=== PATIENT | female | born 1960 | race Caucasian/White ===

== ENCOUNTER 2021-02-01 12:39 | Outpatient (CLI) | payer BC, SELFPAY ==
--- NOTE | 2021-02-01 12:45 | USCV_ITS ---
Jacob Linnea Age: 60 Gender: F : 1960 Exam Date: 02/01/2021 13:07 Ordering Phys: Indu Merino MD ([email or web address]) Technologist: Bella Appiah [place] [facility] [place] [facility] [place]: RCEA RECHECK Risk Factors: Unknown Previous Vascular Surgery: RCEA Right Brachial BP: / Left Brachial BP: / Right Left Velocity (cm/s) Spectral Plaque Velocity (cm/s) Spectral Plaque Syst/Diast Broadening Syst/Diast Broadening 95.90/ 33.10 Prox CCA 76.90 / 29.90 79.40/ 34.20 Mid CCA 72.60 / 29.90 116.90/30.90 Hetro Distal CCA 65.80 / 29.90 Hetro 77.20/ 25.40 Hetro Prox ICA 320.00/ 99.40 Hetro 70.20/ 28.80 Mid ICA 257.90/ 87.00 80.30/ 34.30 Distal ICA 190.30/ 79.30 106.90 ECA 160.10 Hetro 1.01 ICA/CCA 4.41 Antegrade Vertebral Antegrade 43.50/ 15.70 cm/s 62.10/ 23.80 cm/s Tri Subclavian Bi 64.70 93.80 FINDINGS Comparison:. 08/07/17. Post right CEA. Resolved high grade carotid stenosis since the prior exam. Mild plaque persists. High grade left ICA stenosis, significant elevation of systolic and diastolic velocities. Irregular plaque at the bifurcation. Bilateral antegrade vertebral arteries. CONCLUSIONS Left ICA stenosis 70-99%. Mild progression since the prior exam. Right CEA, no residual stenosis. Dr. Karol Ramirez DO (Electronically Signed) Final Date: 01 February 2021 13:41 S
== END 2021-02-01 12:40 | disposition home or self-care (01) ==
LOC: RAD 12:42
PROVIDERS: PCP Nurse Practitioner Family; Visit Provider Internal Medicine Cardiovascular Disease
DX: I65.22 Occlusion and stenosis of left carotid artery (principal)
CPT/HCPCS: 93880

== ENCOUNTER 2021-03-14 13:01 | Outpatient (CLI) | payer BC, SELFPAY ==
--- NOTE | 2021-03-14 13:00 | CT_ITS ---
WS: [id number] CTA HEAD AND NECK TECHNIQUE: Contrast enhanced CTA of the head and neck with coronal and sagittal reformatted images an d maximum intensity projection (MIP) images. NASCET criteria utilized. CLINICAL INFORMATION: I65.23 Occlusion and stenosis of bilateral carotid COMPARISON: CTA 2 and ultrasound 02/01 2021 DLP: 1852.[address] scans at [facility] use at least one of these dose optimization techniques: automated e xposure control; mA and/or kV adjustment per patient size (includes targeted exams where dose is matc hed to clinical indication); or iterative reconstruction. FINDINGS: No evidence of intracranial hemorrhage or mass effect. Chronic lacunar infarct right caudat e. Mild small vessel changes. Moderate parenchymal volume loss worse in the frontal lobes. Intracrani al vascular calcification. Mastoid air cells are well aerated. Mild mucosal thickening in the ethmoid air cells. Soft tissue nodule overlying the right frontal calvarium likely sebaceous cyst. RIGHT: Postoperative changes right carotid endarterectomy. Right common carotid artery is patent. No recurre nt right ICA stenosis. Right ICA is patent to the skull base. LEFT: Left common carotid artery is patent. Dense calcified atheromatous plaque left carotid bulb ext ending into the ICA with stenosis 1 cm distal to the bifurcation measuring approximately 60%. Irregul ar ulcerated atheromatous plaque left carotid bulb extending into the ICA. Left ICA is patent to the skull base. INTRACRANIAL CTA Moderate calcified stenosis left vertebral artery origin which remains patent. Right vertebral artery is patent. Basilar artery is patent. Normal vascularity to the FEEDER TENDER territory bilaterally. Both ICAs are patent at the skull base. Dense cavernous carotid calcification. Normal vascularity to the STEW and MCA territories bilaterally. No evidence of flow-limiting stenosis or aneurysm. Patent an terior communicating artery. Small right A1 segment. Mastoid air cells are well aerated. Polypoid mucosal thickening left maxillary sinus. A few thyroid n odules largest on the right measuring 11 mm. A few lucent lesions in the calvarium stable nonspecific but may represent venous lakes unchanged since 2018. Emphysematous changes in the lung apices. CT/CT angio headneck* [id number] IMPRESSION: 1. Prior postoperative changes right carotid endarterectomy. No recurrent sten osis. 2. Irregular heterogeneous atheromatous plaque left carotid bulb extending int o the ICA with stenosis measuring approximately 60% 1 cm distal to the bifurcat ion. This is similar in appearance and appears slightly progressed compared to 2018 3. Dense calcification with moderate stenosis left vertebral artery origin. Jose th vertebral arteries are patent. 4. Normal intracranial CTA. No evidence of flow-limiting stenosis or aneurysm. 5. Patent anterior communicating artery. Small right A1 segment.
[2021-03-14 13:34] LABS: Blood Urea Nitrogen 23 mg/dL (8-23); Glomerular Filtration Rate 56.6 mL/min (90-130)
[2021-03-14] MEDS: iohexol 350 mg/mL 100 mL Btl IV (13:40)
== END 2021-03-14 13:02 | disposition home or self-care (01) ==
PROVIDERS: PCP Nurse Practitioner Family; Visit Provider Internal Medicine Cardiovascular Disease
DX: Z01.812 Encounter for preprocedural laboratory examination (principal); I65.23 Occlusion and stenosis of bilateral carotid arteries; Z98.890 Other specified postprocedural states
CPT/HCPCS: 70496; 70498; 82565; 84520; Q9967

== ENCOUNTER 2022-03-26 11:52 | Emergency (ER) | payer OTHER, SELFPAY ==
[2022-03-26] VITALS (12 sets, daily range): BP systolic 139–213; BP diastolic 75–104; PULSE 60–79; RESP 16–18; TEMP 36.2; O2SAT 95–100; BMI 26.7
[2022-03-26 12:50] LABS: Add Urine Microscopic? NO; Charge for UA Resulting for Rev
[2022-03-26 12:52] LABS: Basophils % 0.5 %; Eosinophils # 0.1 10^3/uL (0.0-0.8); Eosinophils % 1.6 %; Hematocrit 36.6 % (37.0-47.0); Hemoglobin 12.3 g/dL (11.5-15.3); Lymphocytes # 1.9 10^3/uL (0.8-4.8); Lymphocytes % 21.5 %; Mean Corpuscular HGB Conc 33.6 g/dL (30.0-36.0); Mean Corpuscular Hemoglobin 30.8 pg (28.0-34.0); Mean Corpuscular Volume 91.7 fl (81-99); Mean Platelet Volume 11.2 fL (7.4-10.4); Monocytes # 0.7 10^3/uL (0.2-0.9); Neutrophils # 6.01 10^3/uL (1.8-7.7); Neutrophils % 68.2 %; Nucleated Red Blood Cells % 0 %; Platelet Count 217 10^3/cmm (130-400); Red Blood Count 3.99 10^6/uL (4.1-5.3); White Blood Count 8.8 10^3/uL (4.0-10.0)
[2022-03-26 12:58] LABS: Bilirubin Urine Neg (Negative); Blood Urine Neg (Negative); Glucose Urine UA Norm (Normal); Ketones Urine Negative (Negative); Leukocyte Esterase Urine Negative (Negative); Nitrate Urine Negative (Negative); Protein Urine Neg (Negative); Specific Gravity, Urine 1.005 (1.005-1.030); Urine Appearance Clear (CLEAR); Urine Color Straw (Yellow); Urobilinogen Urine Norm (Negative); pH Urine 7 (5-7)
--- NOTE | 2022-03-26 13:01 | ECG_ITS ---
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 Measurements Intervals [place] Rate: 56 P: 64 TX: 176 QRS: 69 QRSD: 84 T: 73 QT: 407 QTc: 395 Interpretive Statements SINUS BRADYCARDIA Compared to ECG 02/23/2019 02:11:54 Sinus rhythm no longer present Electronically Signed On 03-27-2022 6:04:29 CDT by Indu Merino M.D. [id number]
--- NOTE | 2022-03-26 13:02 | ED_ITS ---
HPI - General Adult General: Chief complaint: General Medical Stated complaint: High BP Time Seen by Provider: 03/26/22 12:23 History of Present Illness: CC: Elevated BP HPI: [61]yo patient w/ x hx of HTN on multiple meidcations presenting to the ED with complaints that his BP is not well controlled. Patient is on 4 agents for BP control including clonidine, losartan, nifedipine and nebivolol. Baseline daily BP noed at >200 systolic today and has been uncontrolled despite taking m edication for the last 5 days. However, the patient noticed today BP is uncontrolled. Denies chest pain, SOB, palpitation, N/V/D, pain radiating to the shoulder, headache, vision changes, LOC, or focal neurological deficits. Patient also denies light-headedness, syncope, vertigo abdominal pain, back pain. Tolerating PO meds without issues. Onset: 5 day Duration: ongoing Location: home Severity: mild Associated symptoms: Deny chest pain, dyspnea, nausea, rash, palpitations or vomiting Review of Systems Const: Denies: fever(s) or chills Eyes: Denies: change in vision ENMT: Denies: mouth pain Card: Denies: chest pain or palpitations Resp: Denies: dyspnea or non-productive cough GI: Denies: abdominal pain, nausea, vomiting or diarrhea : Denies: dysuria Musc: Denies: extremity pain Skin/Breast: Denies: rash or new lesions Neuro: Denies: weakness in extremities Psych: Reports: other (Normal mood) Mayito/Lymph: Denies: easy bruising PFS ED PFSH: Medical History Carotid artery stenosis LEFT HTN (hypertension) Hyperlipidemia Stroke Family History Denies family history of Diabetes CAD (coronary artery disease) Stroke Social History Smoking and tobacco status: current every day smoker Alcohol intake: never Physical Exam Const: COMMON NORMALS: alert HENMT: COMMON NORMALS: atraumatic HEAD & SCALP: atraumatic MOUTH: moist mucous membranes not abnormal Eye: COMMON NORMALS: EOMs intact bilaterally and conjunctivae normal CONJUNCTIVA: Yes conjunctivae normal Neck/C-Spine: COMMON NORMALS: full ROM and supple Resp: COMMON NORMALS: normal respiratory effort and clear to auscultation bilaterally AUSCULTATION: clear to auscultation bilaterally Cardio: COMMON NORMALS: regular rate RATE: regular rate OTHER: 2+ radial pulses b/l GI: COMMON NORMALS: Soft to palpation and non-tender PALPATION: Yes Soft to palpation OTHER: No focal TTP. NO guarding rebound, guarding, rigidity. No CVA tenderness to percussion. Neg Pedro/Neg McBurney's point tenderness, no suprabupic tenderness to palpation. Extremity: COMMON NORMALS: full ROM Neuro: SENSORIUM/ORIENTATION: Yes alert MOTOR EXAM: No Abnormal motor strength present and Other motor observations present (no focal motor deficits) OTHER: Mental status? Awake, alert, and oriented to self, year, month, location, and situation.? Following simple axial and appendicular commands.? Has appropriate fund of knowledge, comprehension, and insight.? Able to recall and understands pertinent aspects of medical history and current treatment status.? ? Language? Speech is fluent without word-finding difficulties.? Intact naming, expression, bilingual medical receptionist, and repetition.? ? Cranial nerves? 2,3,4,6: PERRL, EOMI with no nystagmus. 5: Intact sensation to light touch, symmetric? 7: Smile symmetrical, no facial droop.? 8: Hearing grossly intact.? 9,10: Normal palate movement.? 11: Normal strength in trapezius bilaterally 12: Tongue protrudes midline.? ? Motor examination? Normal bulk & tone. Strength as follows (R/L): Delts (5/5), Biceps (5/5), Triceps (5/5), Wrist ext (5/5), hip flexors (5/5), plantarflexors (5/5), dorsiflexors (5/5). Sensation? Light Touch: Grossly intact and equal in upper and lower extremities bilater ally? Romberg: Negative.? Distal joint position sense intact ? Coordination? Zdcpyr-yt-[id number]-finger movements intact without dysmetria or past-pointing.? Rapid fingertaps: preserved amplitude without decriment.? No tremor, myoclonus or truncal ataxia.? ? Gait/stance? Steady, normal narrow base gait with appropriate arm swing and turning.? Tandem gait without hesitation or loss of balance. Psych: COMMON NORMALS: speech normal SPEECH: Yes normal speech MOOD & AFFECT: Yes euthymic mood Course Vital Signs: Vital signs: Vital Signs Temperature 97.1 F L 03/26/22 11:53 Pulse Rate 76 03/26/22 17:45 Respiratory Rate 17 03/26/22 17:45 Blood Pressure 206/94 03/26/22 17:45 Pulse Oximetry 99 03/26/22 17:45 Oxygen Delivery Me thod 03/26/22 17:45 MDM - General Adult Medical Decision Making [61]yo patient w/ hx of HTN on multiple medications presenting to the ED with high BP readings x 5 day without other medical complaints. Rest of exam including full neuro exam intact. Given presentation, history and exam, I do not suspect aortic dissection, hypertensive encephalopathy, intracranial hemorrhage, ACS, TIA/CVA, flash pulmonary edema. Intervention: hydralazine 20mg IV, amlodipine 5mg [2:30pm] On reassessment, BP improved on reassessment. Troponin within normal limit. Creatinine within normal limit. Patient is neurologically intact. Patient continues to be symptom-free at this time. Do not suspect an emergent cause. Shortly prior to discharge, patient reports headache and generalized paresthesia over the body. CT head is negative for any acute findings. CT abdomen pelvis showed renal vascular disease. No signs of renal mass. Patient's has had intermittent fluctuating blood pressure. Given the fact the patient is on multiple agent with findings of renal vascular disease, I believe managing patient's blood pressure is very challenging. Patient has no signs of endorgan damage currently. However, I have given patient strict instruction to follow-up with primary care provider as well as cardiology for further management of symptoms. She is given strict return precaution any signs of endorgan damage including chest pain or other neurological symptoms. Rx: Amlodipine 5mg BID Based on history, exam, vital signs, and work up (as indicated) I do not suspect an ongoing emergent medical condition, and I believe the patient is safe for discharge and outpatient follow-up. The plan of care was discussed with the patient and all questions were answered. The patient agrees with the plan of care and is discharged in stable condition with verbal and written instructions, and verbalized understanding and ability to comply. I discussed the diagnosis and treatment plan at length with the patient. The patient understands signs and symptoms (including those which are new or worsening) which should prompt return to the ED. The patient is to seek prompt outpatient follow-up as noted verbally and/or in the discharge instructions. At the time of discharge the patient is well-appearing, well-hydrated, non-toxic, and assures appropriate follow-up as an outpatient. Lab Data : 03/26/22 12:40 03/26/22 12:[address] 03/26/22 14:23 IMPRESSION: No acute intracranial finding. Abdomen/Pelvis CT 03/26/22 15:07 IMPRESSION: 1. No adrenal mass is identified. 2. Abdominal aortic aneurysm slightly larger than on 03/05/2018. 3. Increasing atrophy of the left kidney. Combined with a history of hypertension the suggests possibility of renal vascular disease. Laboratory Results WBC 8.8 10^3/uL (4.0-10.0) 03/26/22 12:40 RBC 3.99 10^6/uL (4.1-5.3) L 03/26/22 12:40 Hgb 12.3 g/dL (11.5-15.3) 03/26/22 12:40 Hct 36.6 % (37.0-47.0) L 03/26/22 12:40 MCV 91.7 fl (81-99) 03/26/22 12:40 MCH 30.8 pg (28.0-34.0) 03/26/22 12:40 MCHC 33.6 g/dL (30.0-36.0) 03/26/22 12:40 RDW 13.0 % (12.1-15.1) 03/26/22 12:40 Plt Count 217 10^3/cmm (130-400) 03/26/22 12:40 MPV 11.2 fL (7.4-10.4) H 03/26/22 12:40 Neut % (Auto) 68.2 % 03/26/22 12:40 Lymph % (Auto) 21.5 % 03/26/22 12:40 Glynn % (Auto) 8.0 % 03/26/22 12:40 Eos % (Auto) 1.6 % 03/26/22 12:40 Baso % (Auto) 0.5 % 03/26/22 12:40 Neut # (Auto) 6.01 10^3/uL (1.8-7.7) 03/26/22 12:40 Lymph # (Auto) 1.9 10^3/uL (0.8-4.8) 03/26/22 12:40 Glynn # (Auto) 0.7 10^3/uL (0.2-0.9) 03/26/22 12:40 Eos # (Auto) 0.1 10^3/uL (0.0-0.8) 03/26/22 12:40 Baso # (Auto) 0.0 10^3/uL (0.0-0.1) 03/26/22 12:40 Nucleated RBC % (auto) 0 % 03/26/22 12:40 Nucleated RBCs # 0.0 /100WBC 03/26/22 12:40 Sodium 127 mmol/L (136-145) L 03/26/22 12:40 Potassium 4.3 mmol/L (3.5-5.1) 03/26/22 12:40 Chloride 94 mmol/L (98-107) L 03/26/22 12:40 Carbon Dioxide 22 mmol/L (22-29) 03/26/22 12:40 Anion Gap 15.3 (5-19) 03/26/22 12:40 BUN 13 mg/dL (8-23) 03/26/22 12:40 Creatinine 0.8 mg/dL (0.5-0.9) 03/26/22 12:40 GFR Calculation 72.9 mL/min (90-130) L 03/26/22 12:40 Glucose 107 mg/dL (65-115) 03/26/22 12:40 Calculated Osmolality 265 mOsm/kg (285-295) L 03/26/22 12:40 Calcium 9.7 mg/dL (8.5-10.5) 03/26/22 12:40 Total Bilirubin 0.3 mg/dL (0.15-1.2) 03/26/22 12:40 AST 20 U/L (0-32) 03/26/22 12:40 ALT 11 U/L (0-33) 03/26/22 12:40 Alkaline Phosphatase 78 U/L (35-105) 03/26/22 12:40 Troponin T Baseline 6 ng/L (0-10) 03/26/22 12:40 Troponin T 120 Minute 7.20 ng/L (0-10) 03/26/22 15:35 Delta Troponin T 1.20 ABS# (0-10) 03/26/22 15:35 Total Protein 7.4 g/dL (6.6-8.7) 03/26/22 12:40 Albumin 4.3 g/dL (3.5-5.2) 03/26/22 12:40 Globulin 3.1 g/dL (1.3-4.6) 03/26/22 12:40 Lipase 66 U/L (13-60) H 03/26/22 12:40 Urine Color Straw (Yellow) 03/26/22 12:40 Urine Appearance Clear (CLEAR) 03/26/22 12:40 Urine pH 7 (5-7) 03/26/22 12:40 Ur Specific [place] 1.005 (1.005-1.030) 03/26/22 12:40 Urine Protein Neg (Negative) 03/26/22 12:40 Urine Glucose (UA) Norm (Normal) 03/26/22 12:40 Urine Ketones Negative (Negative) 03/26/22 12:40 Urine Blood Neg (Negative) 03/26/22 12:40 Urine Nitrate Negative (Negative) 03/26/22 12:40 Urine Bilirubin Neg (Negative) 03/26/22 12:40 Urine Urobilinogen Norm mg/dL (Negative) 03/26/22 12:40 Ur Leukocyte Esterase Negative (Negative) 03/26/22 12:40 Imaging Data Other Imaging: Radiologist's impression: [address] [address] [address] Scan Report Signed Patient: Linnea James Unit #: [id number] : 1960 Age/Sex: 61 / F ADM Date: 03/26/22 Loc: ER Room/Bed: Attending Dr: Ordering Provider/Ordering MD: Paige Mccallum MD Date of Service: 03/26/22 Procedure(s): CT abdomen pelvis wo con [id number] Accession Number(s): [id number] Report Number: [id number] PROCEDURE INFORMATION: Exam: CT Abdomen And Pelvis Without Contrast Exam date and time: 03/26/2022 3:14 PM Age: 61 years old Clinical indication: Abdominal pain; Generalized; Patient HX: Severe SCOTT, high blood pressure. PT denies abd complaints at this time. Reasoning for exam possible adrenal mass TECHNIQUE: Imaging protocol: Computed tomography of the abdomen and pelvis without contrast. Radiation optimization: All CT scans at this facility use at least one of these dose optimization techniques: automated exposure control; mA and/or kV adjustment per patient size (includes targeted exams where dose is matched to clinical indication); or iterative reconstruction. COMPARISON: CT abdomen pelvis w con* [id number] 03/05/2018 3:00 PM RADIATION DOSE METRICS: Total DLP (mGy-cm): 518.43 FINDINGS: Limitations: The absence of intravenous contrast lessens the sensitivity of this study for solid organ abnormalities. Liver: There is no focal abnormality within the liver. Gallbladder and bile ducts: The gallbladder is normal. Pancreas: The pancreas is normal. Spleen: The spleen is normal. Adrenal glands: The adrenal glands are normal. Kidneys and ureters: The right kidney is normal. Left kidney is moderately atrophic and significantly smaller than on 03/05/2018. Calcifications associated with each kidney are most likely vascular. No definite renal stones are identified and there is no ureteral calculus. Stomach and bowel: There is no evidence of colitis/diverticulitis. There is no evidence of intestinal obstruction. Appendix: A normal appendix is identified. Intraperitoneal space: There is no evidence of free intraperitoneal fluid. There is no evidence of free intraperitoneal fluid. Vasculature: There is a bilobed infrarenal abdominal aorta. The larger upper portion of the aneurysm measures approximately 3.4 cm which is not significantly changed and the lower portion 2.9 cm which is slightly larger than 2.3 cm on the previous study. Lymph nodes: There is no evidence of lymphadenopathy. Urinary bladder: Unremarkable as visualized. Reproductive: Unremarkable as visualized. Bones/joints: Unremarkable. No acute fracture. Soft tissues: Unremarkable. CT/CT abdomen pelvis wo con [id number] IMPRESSION: 1. No adrenal mass is identified. 2. Abdominal aortic aneurysm slightly larger than on 03/05/2018. 3. Increasing atrophy of the left kidney. Combined with a history of hypertension the suggests possibility of renal vascular disease. ? Dictated By: Grabiel Cunningham Signed By: Grabiel Cunningham Signed Date/Time: 03/26/22 7067 DD/ 15[address] [facility] [address] [place] [address] CT Scan Report Signed Patient: Linnea James Unit #: [id number] : 1960 Age/Sex: 61 / F ADM Date: 03/26/22 Loc: ER Room/Bed: Attending Dr: Ordering Provider/Ordering MD: Paige Mccallum MD Date of Service: 03/26/22 Procedure(s): CT head wo con* [id number] Accession Number(s): [id number] Report Number: [id number] PROCEDURE INFORMATION: Exam: CT Head Without Contrast Exam date and time: 03/26/2022 3:11 PM Age: 61 years old Clinical indication: Pain; Headache not specified; Patient HX: Severe SCOTT, high blood pressure. PT denies abd complaints at this time. Reasoning for exam possible adrenal mass TECHNIQUE: Imaging protocol: Computed tomography of the head without contrast. Radiation optimization: All CT scans at this facility use at least one of these dose optimization techniques: automated exposure control; mA and/or kV adjustment per patient size (includes targeted exams where dose is matched to clinical indication); or iterative reconstruction. COMPARISON: CT angio headneck* [id number] 03/14/2021 1:31 PM RADIATION DOSE METRICS: Total DLP (mGy-cm): 1063.88 FINDINGS: Brain: There is mild cortical atrophy. Low-density changes in the white matter are consistent with nonspecific small vessel chronic ischemic change. There is no intracranial mass, hemorrhage or edema. There may be small old lacunar infarcts in the basal ganglia not significantly changed. Cerebral ventricles: No ventriculomegaly. Paranasal sinuses: Visualized sinuses are unremarkable. No fluid levels. Mastoid air cells: Visualized mastoid air cells are well aerated. Bones/joints: Unremarkable. No acute fracture. Soft tissues: Unremarkable. CT/CT head wo con* [id number] IMPRESSION: No acute intracranial finding. ? Dictated By: Grabiel Cunningham Signed By: Grabiel Cunningham Signed Date/Time: 03/26/22 1733 DD/ 1511 Discharge Plan Discharge Patient Disposition: Home Clinical Impression: Hypertension Condition: Stable Prescriptions: New amlodipine 5 mg tablet 5 mg PO BID 10 Days Qty: 20 0RF No Action multivitamin Tablet 1 tab PO DAILY clopidogrel 75 mg tablet 75 mg PO DAILY Qty: 90 2RF losartan 100 mg tablet See Rx Instructions .ROUTE .COMPLEX Qty: 30 11RF Dose Instruction: TAKE 1 TABLET BY MOUTH EVERY DAY Rx Instructions: TAKE 1 TABLET BY MOUTH EVERY DAY fenofibrate nanocrystallized [Tricor] 145 mg tablet 145 mg PO DAILY Qty: 90 1RF Bystolic 10 mg tablet 10 mg PO DAILY Qty: 90 3RF rosuvastatin [Crestor] 20 mg tablet 20 mg PO DAILY Qty: 90 3RF clonidine HCl 0.2 mg tablet 0.2 mg PO TID Qty: 90 6RF nifedipine 90 mg tablet extended release 90 mg PO DAILY Qty: 90 2RF Discharge Orders: Discharge ED (Routine); Ordered 03/26/22 Ordered By: Paige Mccallum Discharge Diet: Advance as tolerated Discharge Activity: Increase activity as tolerated Activity Restrictions/Additional Instructions: You need to follow-up with your primary care provider for further adjustment of your blood pressure. Your blood pressure puts you at risk for developing s trokes and heart attack. Therefore it is very important for you to follow-up with this number to see if the numbers improve gradually. Because blood pressure adjustment is a gradual process, were not able to change it in 1 visit. Therefore please log your blood pressure and follow-up with your primary care provider in the next 72 hours for further adjustment of your blood pressures. Please ensure adequate salt intake daily. Coding Level of Care Code ED Casting Machine Set Up Operator for [place] Fwd Exam Comprehensive
[2022-03-26] MEDS: hyDRALAzine 20 mg/mL INJ 1 mL IVP (13:07)
[2022-03-26 13:08] LABS: Alanine Aminotransferase 11 U/L (0-33); Albumin Level 4.3 g/dL (3.5-5.2); Alkaline Phosphatase 78 U/L (35-105); Anion Gap 15.3 (5-19); Aspartate Amino Transferase 20 U/L (0-32); Blood Urea Nitrogen 13 mg/dL (8-23); Calcium 9.7 mg/dL (8.5-10.5); Carbon Dioxide 22 mmol/L (22-29); Chloride 94 mmol/L (98-107); Creatinine Clr Calc Pharmacy 71.2583; Globulin 3.1 g/dL (1.3-4.6); Glomerular Filtration Rate 72.9 mL/min (90-130); Glucose 107 mg/dL (65-115); Lipase 66 U/L (13-60); Osmolality Calculated 265 mOsm/kg (285-295); Potassium 4.3 mmol/L (3.5-5.1); Sodium 127 mmol/L (136-145); Total Bilirubin 0.3 mg/dL (0.15-1.2); Total Protein 7.4 g/dL (6.6-8.7)
[2022-03-26 13:30] LABS: Troponin(5th) Baseline 6 ng/L (0-10)
--- NOTE | 2022-03-26 14:23 | CTR_ITS ---
PROCEDURE INFORMATION: Exam: CT Head Without Contrast Exam date and time: 03/26/2022 3:11 PM Age: 61 years old Clinical indication: Pain; Headache not specified; Patient HX: Severe SCOTT, high blood pressure. PT denies abd complaints at this time. Reasoning for exam possible adrenal mass TECHNIQUE: Imaging protocol: Computed tomography of the head without contrast. Radiation optimization: All CT scans at this facility use at least one of these dose optimization techniques: automated exposure control; mA and/or kV adjustment per patient size (includes targeted exams where dose is matched to clinical indication); or iterative reconstruction. COMPARISON: CT angio headneck* [id number] 03/14/2021 1:31 PM RADIATION DOSE METRICS: Total DLP (mGy-cm): 1063.88 FINDINGS: Brain: There is mild cortical atrophy. Low-density changes in the white matter are consistent with nonspecific small vessel chronic ischemic change. There is no intracranial mass, hemorrhage or edema. There may be small old lacunar infarcts in the basal ganglia not significantly changed. Cerebral ventricles: No ventriculomegaly. Paranasal sinuses: Visualized sinuses are unremarkable. No fluid levels. Mastoid air cells: Visualized mastoid air cells are well aerated. Bones/joints: Unremarkable. No acute fracture. Soft tissues: Unremarkable. CT/CT head wo con* [id number] IMPRESSION: No acute intracranial finding.
[2022-03-26] MEDS: midazolam 1 mg/mL INJ 2 mL 2 MG IV (14:24)
--- NOTE | 2022-03-26 14:24 | PC.NURSE ---
Pt is crying and anxious very concerned about her BP. C/o of headache and not feeling right, unable to describe exactly what shes feeling. ERP notified and at bedside. New verbal orders for meds.
[2022-03-26] MEDS: diphenhydrAMINE 50 mg/mL SDV 1mL IVP (14:27)
[2022-03-26] MEDS: famotidine 20 mg/2 mL INJ IVP (14:28)
--- NOTE | 2022-03-26 15:01 | ECG_ITS ---
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 Measurements Intervals [place] Rate: 63 P: 41 IN: 179 QRS: 23 QRSD: 83 T: 44 QT: 393 QTc: 405 Interpretive Statements SINUS RHYTHM POSSIBLE LEFT ATRIAL ENLARGEMENT [-0.1mV P-WAVE IN V1/V2] POSSIBLE ANTERIOR MYOCARDIAL INFARCTION , OF INDETERMINATE AGE [30 ms Q WAVE IN V3/V4, OR R < 0.2 mV IN V4] Compared to ECG 03/26/2022 13:14:01 Myocardial infarct finding now present Sinus bradycardia no longer present Electronically Signed On 03-27-2022 6:09:44 CDT by Indu Merino M.D. [id number]
--- NOTE | 2022-03-26 15:07 | CTR_ITS ---
PROCEDURE INFORMATION: Exam: CT Abdomen And Pelvis Without Contrast Exam date and time: 03/26/2022 3:14 PM Age: 61 years old Clinical indication: Abdominal pain; Generalized; Patient HX: Severe SCOTT, high blood pressure. PT denies abd complaints at this time. Reasoning for exam possible adrenal mass TECHNIQUE: Imaging protocol: Computed tomography of the abdomen and pelvis without contrast. Radiation optimization: All CT scans at this facility use at least one of these dose optimization techniques: automated exposure control; mA and/or kV adjustment per patient size (includes targeted exams where dose is matched to clinical indication); or iterative reconstruction. COMPARISON: CT abdomen pelvis w con* [id number] 03/05/2018 3:00 PM RADIATION DOSE METRICS: Total DLP (mGy-cm): 518.43 FINDINGS: Limitations: The absence of intravenous contrast lessens the sensitivity of this study for solid organ abnormalities. Liver: There is no focal abnormality within the liver. Gallbladder and bile ducts: The gallbladder is normal. Pancreas: The pancreas is normal. Spleen: The spleen is normal. Adrenal glands: The adrenal glands are normal. Kidneys and ureters: The right kidney is normal. Left kidney is moderately atrophic and significantly smaller than on 03/05/2018. Calcifications associated with each kidney are most likely vascular. No definite renal stones are identified and there is no ureteral calculus. Stomach and bowel: There is no evidence of colitis/diverticulitis. There is no evidence of intestinal obstruction. Appendix: A normal appendix is identified. Intraperitoneal space: There is no evidence of free intraperitoneal fluid. There is no evidence of free intraperitoneal fluid. Vasculature: There is a bilobed infrarenal abdominal aorta. The larger upper portion of the aneurysm measures approximately 3.4 cm which is not significantly changed and the lower portion 2.9 cm which is slightly larger than 2.3 cm on the previous study. Lymph nodes: There is no evidence of lymphadenopathy. Urinary bladder: Unremarkable as visualized. Reproductive: Unremarkable as visualized. Bones/joints: Unremarkable. No acute fracture. Soft tissues: Unremarkable. CT/CT abdomen pelvis wo con [id number] IMPRESSION: 1. No adrenal mass is identified. 2. Abdominal aortic aneurysm slightly larger than on 03/05/2018. 3. Increasing atrophy of the left kidney. Combined with a history of hypertension the suggests possibility of renal vascular disease.
[2022-03-26] MEDS: LORazepam 1 mg Tablet PO (17:50)
[2022-03-26] MEDS: amlodipine 5 mg Tablet PO (18:43)
== END 2022-03-26 19:07 | disposition home or self-care (01) ==
PROVIDERS: Family Medicine; Emergency Provider Emergency Medicine
DX: I10 Essential (primary) hypertension (principal); Z79.02 Long term (current) use of antithrombotics/antiplatelets; E78.5 Hyperlipidemia, unspecified; Z86.73 Personal history of transient ischemic attack (TIA), and cerebral infarction without residual deficits; F17.210 Nicotine dependence, cigarettes, uncomplicated
CPT/HCPCS: 70450; 74176; 80053; 81003; 83690; 84484; 85025; 93005; 96374; 96375; 99285; J0360; J1200; J2250; J3490

== ENCOUNTER → 2023-05-12 11:48 | Outpatient (BNVA) | payer OTHER, SELFPAY | PROVIDERS: Visit Provider Nurse Practitioner | DX: E78.5 Hyperlipidemia, unspecified (principal); I10 Essential (primary) hypertension; F41.8 Other specified anxiety disorders; Z76.89 Persons encountering health services in other specified circumstances; Z53.20 Procedure and treatment not carried out because of patient's decision for unspecified reasons | CPT/HCPCS: 80053; 80061; 84443; 85025 ==

== ENCOUNTER 2023-09-20 18:33 | Emergency (ER) | payer OTHER, SELFPAY ==
[2023-09-20] VITALS (8 sets, daily range): BP systolic 135–189; BP diastolic 72–95; PULSE 68–84; RESP 16–20; TEMP 36.6; O2SAT 91–100; BMI 27.4
--- NOTE | 2023-09-20 18:41 | ECG_ITS ---
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 Measurements Intervals [place] Rate: 78 P: 42 [place]: 173 QRS: 22 QRSD: 84 T: 51 QT: 345 QTc: 394 Interpretive Statements SINUS RHYTHM POSSIBLE LEFT ATRIAL ENLARGEMENT [-0.1mV P-WAVE IN V1/V2] POSSIBLE ANTERIOR MYOCARDIAL INFARCTION , OF INDETERMINATE AGE [30 ms Q WAVE IN V3/V4, OR R < 0.2 mV IN V4] Compared to ECG 03/26/2022 15:02:27 No significant changes Electronically Signed On 09-21-2023 23:56:28 CDT by Jaya Harman M.D. [email or web address] [id number]
--- NOTE | 2023-09-20 20:27 | XRR_ITS ---
PROCEDURE INFORMATION: Exam: XR Chest Exam date and time: 09/20/2023 8:32 PM Age: 62 years old Clinical indication: Shortness of breath; Patient HX: SOB; Weakness; Easily exauhsted; Copd TECHNIQUE: Imaging protocol: Radiologic exam of the chest. Views: 1 view. COMPARISON: CR XR chest 1V [id number] 02/22/2019 3:55 PM FINDINGS: Lungs: Mildly hyperinflated lungs. No consolidation. Pleural spaces: Unremarkable. No pleural effusion. No pneumothorax. Heart/Mediastinum: Magnified by portable technique, likely in the upper limits of normal in size. Bones/joints: Unremarkable. XR/XR chest 1V portable [id number] IMPRESSION: Mild hyperinflation suggestive of COPD/airways disease without focal consolidation.
--- NOTE | 2023-09-20 20:42 | ECG_ITS ---
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 Measurements Intervals [place] Rate: 68 P: 33 [place]: 179 QRS: 13 QRSD: 84 T: 40 QT: 364 QTc: 390 Interpretive Statements SINUS RHYTHM POSSIBLE LEFT ATRIAL ENLARGEMENT [-0.1mV P-WAVE IN V1/V2] POSSIBLE LEFT VENTRICULAR HYPERTROPHY [VOLTAGE CRITERIA PLUS LAE OR QRS WIDENING] POSSIBLE ANTERIOR MYOCARDIAL INFARCTION , OF INDETERMINATE AGE [30 ms Q WAVE IN V3/V4, OR R < 0.2 mV IN V4] Compared to ECG 09/20/2023 18:41:52 No significant changes Electronically Signed On 09-21-2023 23:56:21 CDT by Jaya Harman M.D. [id number]
[2023-09-20 20:48] LABS: Basophils # 0.1 10^3/uL (0.0-0.1); Basophils % 0.7 %; Eosinophils # 0.2 10^3/uL (0.0-0.8); Eosinophils % 2.3 %; Hematocrit 35.3 % (36-47); Lymphocytes # 2.7 10^3/uL (0.8-4.8); Lymphocytes % 28.2 %; Mean Corpuscular HGB Conc 33.4 g/dL (30-55); Mean Corpuscular Hemoglobin 29.9 pg (27-33); Mean Corpuscular Volume 89.6 fl (85-98); Mean Platelet Volume 10.7 fL (7.4-10.4); Monocytes # 0.8 10^3/uL (0.2-0.9); Monocytes % 8.8 %; Neutrophils # 5.73 10^3/uL (1.8-7.7); Neutrophils % 59.7 %; Nucleated Red Blood Cells % 0 %; Platelet Count 279 10^3/cmm (157-399); Red Blood Count 3.94 10^6/uL (3.85-5.65); Red Cell Distribution Width 12.1 % (12.1-15.1); White Blood Count 9.59 10^3/uL (3.29-11.43)
[2023-09-20 21:06] LABS: Troponin(5th) Baseline < 6 ng/L (0-10)
--- NOTE | 2023-09-20 21:08 | ED_ITS ---
HPI - SOB/Dyspnea 2 General: Chief Complaint: Shortness of Breath/Dyspnea Stated Complaint: SOB Time Seen by Provider: 09/20/23 20:23 History of Present Illness: HPI Narrative: 62-year-old female with no prior history of coronary disease. She does have a history of hypertension and carotid artery disease. She presents short of breath. She says she has been short of breath for the past couple of months on and off. It seems to be worsening. Last night, she was more short of breath than usual, with arm heaviness, shortness of breath while walking across her house. She was experiencing reflux symptoms as well which she has not really had before. Her daughter convinced her to come to the ER today to get checked out Pertinent past history: other Associated symptoms: Reports chest pain ( Reflux ) and nausea; Deny abdominal pain, fever(s) or vomiting Review of Systems 2 Const: Denies: fever(s) or chills ENMT: Denies: throat pain Card: Reports: chest pain ( Reflux ) Resp: Reports: dyspnea and non-productive cough GI: Reports: nausea; Denies: abdominal pain or vomiting PFSH ED 2 PFSH: Medical History Stroke HTN (hypertension) Hyperlipidemia Carotid artery stenosis left- 60% ICA stenosis in 2020. right s/p endartarectomy Family History Denies family history of Diabetes CAD (coronary artery disease) Stroke Social History Smoking and tobacco/nicotine status: current every day tobacco/nicotine user Alcohol intake: never Substance/Drug Use: never Female Reproductive History: Spontaneous abortions: No Date of menopause: 0 06/30/04 Physical Exam 2 Const: COMMON NORMALS: no acute distress GENERAL APPEARANCE: cooperative; not ill appearing and not frail appearing HENMT: COMMON NORMALS: normocephalic, atraumatic and Normal external nose present HEAD & SCALP: normocephalic and atraumatic FACE & SINUS: normal facial exam and face symmetric NOSE: Normal external nose present Eye: COMMON NORMALS: Equal, round and reactive pupils present and EOMs intact bilaterally PUPIL: Yes Equal, round and reactive pupils present Neck/C-Spine: GENERAL: Yes trachea midline Chest: CHEST: Yes Symmetrical chest wall rise Resp: COMMON NORMALS: normal respiratory effort, No retractions and No use of accessory muscles AUSCULTATION: wheezes (Bilateral) Cardio: COMMON NORMALS: regular rate and regular rhythm RATE: regular rate RHYTHM: regular rhythm GI: COMMON NORMALS: Normal to inspection, nondistended, normoactive bowel sounds present Extremity: COMMON NORMALS: no pedal edema Neuro: [place] COMA SCALE: document GCS findings [place] coma scale eye opening: Spontaneous [place] coma scale verbal response: Orientated [place] coma scale motor response: Obey commands [place] coma scale total score: 15 S ENSORY EXAM: Yes extremities (intact) Psych: COMMON NORMALS: speech normal SPEECH: Yes normal speech Skin: COMMON NORMALS: no rashes or lesions noted GENERAL SKIN EXAM: no rashes or lesions noted Course 2 Vital Signs: Vital signs: Vital Signs Temperature 97.9 F 09/20/23 22:45 Pulse Rate 76 09/20/23 22:45 Respiratory Rate 16 09/20/23 22:45 Blood Pressure 145/81 09/20/23 22:45 Pulse Oximetry 100 09/20/23 22:45 Oxygen Delivery Me thod Room Air 09/20/23 22:19 MDM - SOB/Dyspnea Medical Decision Making 62-year-old female with shortness of breath. No significant chest discomfort. Chest x-ray shows hyperinflation suggestive of COPD. She is wheezy on exam. CBC is not remarkable. BMP is not remarkable. EKG showed no acute ST wave changes. Her delta troponin is 0. BNP is not remarkable at 268. She is improved after breathing treatment here. She has been given Solu-Medrol as well. She will be discharged with a tapering dose of steroid, albuterol inhaler. Close outpatient follow-up. Lab Data 09/20/23 20:40 09/20/23 20:40 Labs/Radiology: Radiology Impressions Chest X-Ray 09/20/23 20:27 IMPRESSION: Mild hyperinflation suggestive of COPD/airways disease without focal consolidation. Laboratory Results WBC 9.59 10^3/uL (3.29-11.43) 09/20/23 20:40 RBC 3.94 10^6/uL (3.85-5.65) 09/20/23 20:40 Hgb 11.80 g/dL (11.27-16.99) 09/20/23 20:40 Hct 35.3 % (36-47) L 09/20/23 20:40 MCV 89.6 fl (85-98) 09/20/23 20:40 MCH 29.9 pg (27-33) 09/20/23 20:40 MCHC 33.4 g/dL (30-55) 09/20/23 20:40 RDW 12.1 % (12.1-15.1) 09/20/23 20:40 Plt Count 279 10^3/cmm (157-399) 09/20/23 20:40 MPV 10.7 fL (7.4-10.4) H 09/20/23 20:40 Neut % (Auto) 59.7 % 09/20/23 20:40 Lymph % (Auto) 28.2 % 09/20/23 20:40 [place] % (Auto) 8.8 % 09/20/23 20:40 Eos % (Auto) 2.3 % 09/20/23 20:40 Baso % (Auto) 0.7 % 09/20/23 20:40 Neut # (Auto) 5.73 10^3/uL (1.8-7.7) 09/20/23 20:40 Lymph # (Auto) 2.7 10^3/uL (0.8-4.8) 09/20/23 20:40 [place] # (Auto) 0.8 10^3/uL (0.2-0.9) 09/20/23 20:40 Eos # (Auto) 0.2 10^3/uL (0.0-0.8) 09/20/23 20:40 Baso # (Auto) 0.1 10^3/uL (0.0-0.1) 09/20/23 20:40 Nucleated RBC % (auto) 0 % 09/20/23 20:40 Nucleated RBCs # 0.0 /100WBC 09/20/23 20:40 Sodium 136 mmol/L (136-145) 09/20/23 20:40 Potassium 4.5 mmol/L (3.5-5.1) 09/20/23 20:40 Chloride 103 mmol/L (98-107) 09/20/23 20:40 Carbon Dioxide 21 mmol/L (22-29) L 09/20/23 20:40 Anion Gap 16.5 (5-19) 09/20/23 20:40 BUN 21 mg/dL (8-23) 09/20/23 20:40 Creatinine 1.1 mg/dL (0.5-0.9) H 09/20/23 20:40 GFR Calculation 50.3 mL/min (90-130) L 09/20/23 20:40 Glucose 108 mg/dL (65-115) 09/20/23 20:40 Calculated Osmolality 286 mOsm/kg (285-295) 09/20/23 20:40 Calcium 9.4 mg/dL (8.5-10.5) 09/20/23 20:40 Troponin T Baseline < 6 ng/L (0-10) 09/20/23 20:40 Troponin T 120 Minute 6.00 ng/L (0-10) 09/20/23 22:20 Delta Troponin T 0.36519 ABS# (0-10) 09/20/23 22:20 NT-Pro-B Natriuret Pep 268 pg/mL (0-125) H 09/20/23 20:40 All radiology interpretation(s) finalized by discharge Discharge Plan Discharge Patient Disposition: Home Clinical Impression: Asthma with exacerbation Condition: Stable Prescriptions: New prednisone 10 mg tablet 10 mg PO DIRECTED Qty: 21 0RF Rx Instructions: 4PO QDx3d, 2PO QDx3d, 1PO QDx3d albuterol sulfate 90 mcg/actuation HFA aerosol inhaler 2 inh inhalation Q4H PRN (Reason: shortness of breath or wheezing) Qty: 6.7 1RF No Action multivitamin Tablet 1 tab PO DAILY losartan 100 mg tablet See Rx Instructions .ROUTE .COMPLEX Qty: 90 2RF Dose Instruction: TAKE 1 TABLET BY MOUTH EVERY DAY Rx Instructions: TAKE 1 TABLET BY MOUTH EVERY DAY nebivolol [Bystolic] 20 mg tablet 20 mg PO DAILY Qty: 90 1RF hydroxyzine HCl 25 mg tablet 25 mg PO BID PRN (Reason: anxiety) Qty: 60 1RF escitalopram oxalate [Lexapro] 10 mg tablet 10 mg PO DAILY Qty: 30 1RF rosuvastatin [Crestor] 20 mg tablet 20 mg PO DAILY Qty: 90 3RF nifedipine 90 mg tablet extended release 90 mg PO DAILY Qty: 90 2RF amlodipine 5 mg tablet See Rx Instructions .ROUTE .COMPLEX Qty: 180 3RF Dose Instruction: TAKE 1 TABLET BY MOUTH TWICE DAILY FOR HYPERTENSION (HIGH BLOOD PRESSURE) Rx Instructions: TAKE 1 TABLET BY MOUTH TWICE DAILY FOR HYPERTENSION (HIGH BLOOD PRESSURE) clopidogrel 75 mg tablet See Rx Instructions .ROUTE .COMPLEX Qty: 90 3RF Dose Instruction: TAKE 1 TABLET BY MOUTH DAILY Rx Instructions: TAKE 1 TABLET BY MOUTH DAILY clonidine HCl 0.2 mg tablet 0.2 mg PO TID Qty: 90 6RF Discharge Orders: Discharge ED (Routine); Ordered 09/20/23 Ordered By: Ameya Pacheco Referrals: Antonia Lainez FNP [Primary Care Provider] - 1-3 days Patient Instructions: Dyspnea (ED), Wheezing (ED), Opioid Safety, Pain Management Activity Restrictions/Additional Instructions: Use your inhaler every 4 hours while awake for the next 48 hours, then as needed following that. Medication as directed. Call your doctor and see them next week. Return for worsening shortness of breath despite treatment, worsening chest discomfort, any other concerning symptoms. Coding Level of Care Code ED Limnology Teacher for Alvarado Petty
[2023-09-20 21:14] LABS: Anion Gap 16.5 (5-19); Blood Urea Nitrogen 21 mg/dL (8-23); Calcium 9.4 mg/dL (8.5-10.5); Carbon Dioxide 21 mmol/L (22-29); Chloride 103 mmol/L (98-107); Creatinine Clr Calc Pharmacy 51.7759; Glomerular Filtration Rate 50.3 mL/min (90-130); Glucose 108 mg/dL (65-115); NT Pro B Type Natriuretic Pept 268 pg/mL (0-125); Osmolality Calculated 286 mOsm/kg (285-295); Potassium 4.5 mmol/L (3.5-5.1); Sodium 136 mmol/L (136-145)
[2023-09-20] MEDS: ipratropium-albuterol 3 mL Neb INHALATION (22:15)
--- NOTE | 2023-09-20 22:27 | ECG_ITS ---
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 Measurements Intervals [place] Rate: 71 P: 31 [place]: 180 QRS: 5 QRSD: 84 T: 29 QT: 373 QTc: 408 Interpretive Statements SINUS RHYTHM MODERATE VOLTAGE CRITERIA FOR LVH, CONSIDER NORMAL VARIANT [MEETS CRITERIA IN ONE OF: R(aVL), S(V1), R(V5), R(V5/V6)+S(V1)] POSSIBLE ANTERIOR MYOCARDIAL INFARCTION , OF INDETERMINATE AGE [30 ms Q WAVE IN V3/V4, OR R < 0.2 mV IN V4] Compared to ECG 09/20/2023 20:42:53 No significant changes Electronically Signed On 09-21-2023 23:58:32 CDT by Jaya Harman M.D. [id number]
[2023-09-20] MEDS: predniSONE 20 mg Tablet 60 MG PO (22:37)
[2023-09-20 22:45] LABS: Troponin 5 2HR Delta 0.00001 ABS# (0-10)
== END 2023-09-20 22:44 | disposition home or self-care (01) ==
PROVIDERS: Emergency Provider Emergency Medicine; PCP Nurse Practitioner
DX: J45.901 Unspecified asthma with (acute) exacerbation (principal); Z79.02 Long term (current) use of antithrombotics/antiplatelets; Z86.73 Personal history of transient ischemic attack (TIA), and cerebral infarction without residual deficits; I10 Essential (primary) hypertension; E78.5 Hyperlipidemia, unspecified; Z72.0 Tobacco use; I77.9 Disorder of arteries and arterioles, unspecified
CPT/HCPCS: 36415; 71045; 80048; 83880; 84484; 85025; 93005; 94640; 99285; J7512

== ENCOUNTER → 2023-12-11 10:58 | Outpatient (BNVA) | payer OTHER, SELFPAY | PROVIDERS: PCP Nurse Practitioner; Visit Provider Internal Medicine Cardiovascular Disease | DX: R07.9 Chest pain, unspecified (principal); I65.29 Occlusion and stenosis of unspecified carotid artery; E78.5 Hyperlipidemia, unspecified; I10 Essential (primary) hypertension; I63.9 Cerebral infarction, unspecified | CPT/HCPCS: 93005 ==

== ENCOUNTER 2024-01-19 07:58 | Outpatient (CLI) | payer OTHER, SELFPAY ==
[2024-01-19 08:45] LABS: Blood Urea Nitrogen 24 mg/dL (8-23); Glomerular Filtration Rate 72.4 mL/min (90-130)
--- NOTE | 2024-01-19 09:00 | CT_ITS ---
WS: [id number] CT ANGIOGRAM CEREBRAL AND CAROTID ARTERIES HISTORY: Carotid bruit TECHNIQUE: CT angiogram is performed of the carotid and cerebral arteries. During arterial injection imaging is obtained from the skull vertex to the aortic arch in 1.25 mm imaging. Coronal and sagittal reformats are submitted. Additional multi planar reformats of the carotid and cerebral arteries are submitted, MIP imaging also reviewed. NASCET criteria utilized. [facility] at least one of these dose optimization techniques: automated exposure control; mA and/or kV adjust ment per patient size (includes targeted exams where dose is matched to clinical indication); or iter ative reconstruction. CONTRAST: Omnipaque 350; 100 mL IV. DLP: 1179.43 mGy.cm COMPARISON: 03/14/[address] Moderate bifrontal volume loss. Mild small vessel ischemic disease. No hemorrhag e. Mild cerebellar atrophy. Surgical clips near the supraclinoid RIGHT carotid artery. Carotid Angiogram: Right carotid: Common carotid artery: Prior RIGHT carotid endarterectomy. No recurrent stenosis. Internal carotid artery: Mild plaque at the bifurcation with no stenosis. Prior endarterectomy. External carotid artery: Patent. Left carotid: Common carotid artery: Arises normally from the aorta. No significant plaque or stenosis. Internal carotid artery: Mild calcified plaque at the bifurcation and distal cervical carotid artery. Calcified plaque with plaque ulceration is noted. Stenosis is calculated at 62%. I believe this is a n over estimation of the lumen in size. There is a focal ulcerated plaque along with a web. I suspect this stenosis is closer to 70 to 80%. There is a mild stenosis also at the origin of the ICA. The hi gher stenosis is approximately 1 cm beyond the bifurcation. External carotid artery: Patent. Right vertebral artery: Unremarkable. Left vertebral artery: Dense calcified plaque with a high-grade stenosis at the origin of the LEFT ve rtebral artery. Vertebral artery remains patent. No change. Subclavian arteries: No stenosis or significant abnormality. Upper thorax: Chronic emphysema. Thyroid gland: Bilateral thyroid nodules. Osseous structures: Cervical spondylosis. CEREBRAL ANGIOGRAM: Intracranial vertebral arteries: LEFT vertebral artery is mildly dominant. There is plaque within the vertebral arteries distally but no occlusion. Basilar artery: No significant stenosis or occlusion. No aneurysm. Intracranial Internal carotid arteries: Scattered plaque of the cavernous sinuses. Stenosis less than 50%. Middle cerebral arteries: Normal. Anterior cerebral arteries and ACOM: Normal. Posterior cerebral arteries and PCOM's: Normal. Dural venous sinuses are normally enhancing. Mastoid air cells: Normal. Paranasal sinuses: Mild mucoperiosteal thickening frontal and posterior RIGHT ethmoid air cells. Calvarium: No fracture. There is a small soft tissue calvarial lesion over the RIGHT frontal bone whi ch is unchanged. CT/CT angio headneck* [id number] IMPRESSION: 1. Heterogeneous plaque involving the proximal LEFT ICA. There is a small ulce rated plaque with a thin web involving the LEFT ICA approximately 1 cm from the origin. Suspect there is a high-grade stenosis of 70 to 80% which has minimall y progressed. 2. Prior RIGHT carotid endarterectomy. 3. Dense calcified plaque at the origin of the LEFT vertebral artery but the v ertebral artery does remain patent. 4. No cerebral artery aneurysm.
[2024-01-19] MEDS: iohexol 350 mg/mL 500 mL Btl (per mL) IV (09:14)
== END 2024-01-19 07:59 | disposition home or self-care (01) ==
LOC: RAD 07:58
PROVIDERS: PCP Nurse Practitioner; Visit Provider Internal Medicine Cardiovascular Disease
DX: I65.29 Occlusion and stenosis of unspecified carotid artery (principal); E78.5 Hyperlipidemia, unspecified; I10 Essential (primary) hypertension; I63.9 Cerebral infarction, unspecified; G93.89 Other specified disorders of brain; G31.89 Other specified degenerative diseases of nervous system; Z98.890 Other specified postprocedural states; J43.8 Other emphysema; E04.2 Nontoxic multinodular goiter; M47.812 Spondylosis without myelopathy or radiculopathy, cervical region; J34.89 Other specified disorders of nose and nasal sinuses; M79.89 Other specified soft tissue disorders
CPT/HCPCS: 70496; 70498; 82565; 84520; 93306; Q9967

== ENCOUNTER 2024-01-28 13:33 | Inpatient (IN) | payer OTHER, SELFPAY ==
[2024-01-28] VITALS (7 sets, daily range): BP systolic 135–166; BP diastolic 61–76; PULSE 62–77; RESP 18; TEMP 36.4–36.8; O2SAT 93–99; BMI 27.4; BMI 28.1
--- NOTE | 2024-01-28 13:43 | ECG_ITS ---
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 Measurements Intervals [place] Rate: 59 P: 62 [place]: 166 QRS: 46 QRSD: 83 T: 74 QT: 367 QTc: 365 Interpretive Statements SINUS BRADYCARDIA Compared to ECG 12/11/2023 11:06:37 Sinus rhythm no longer present Electronically Signed On 01-28-2024 17:13:18 CDT by Jaya Harman M.D. [email or web address] Global Instructor Networktrinity [id number]
--- NOTE | 2024-01-28 13:43 | CT_ITS ---
WS: [id number] CT HEAD TECHNIQUE: Noncontrast CT of the head obtained from the skullbase to the vertex. CLINICAL INFORMATION: weakness COMPARISON: 2021 DLP: 1056.[address] scans at [facility] use at least one of these dose optimization techniques: automated e xposure control; mA and/or kV adjustment per patient size (includes targeted exams where dose is matc hed to clinical indication); or iterative reconstruction. FINDINGS: No evidence of intracranial hemorrhage or mass effect. Ventricular system and basal cisterns are keller nt. Mild small vessel changes. Moderate parenchymal volume loss worse in the frontal lobes. Vascular calcification. No evidence of mass or mass effect. Tiny chronic lacunar infarct RIGHT caudate. Tiny c hronic lacunar infarct LEFT alex unchanged. Paranasal sinuses and mastoid air cells are well aerated. RIGHT frontal scalp nodule likely sebaceous cyst. CT/CT head wo con* [id number] IMPRESSION: 1. No evidence of intracranial hemorrhage or mass effect. 2. Tiny chronic lacunar infarct RIGHT caudate and LEFT alex. 3. Vascular calcification. 4. No acute intracranial findings.
--- NOTE | 2024-01-28 13:46 | ED_ITS ---
HPI - Weakness 2 General: Chief complaint: Weakness Stated complaint: Weakness x1 week Time Seen by Provider: 01/28/24 13:37 Source: patient and EMS Mode of arrival: EMS Limitations: no limitations History of Present Illness: 63-year-old female states she has been f eeling quite anxious along with having some generalized weakness over the last week. States she had a CTA done on the she found out she had had some carotid stenosis in her left carotid artery she had endarterectomy on the right. She states she supposed to follow-up with a vascular surgeon but states that since then she is states she is just felt weak and slow she denies any specific focal deficits no slurred speech no one- sided weakness. She states she had some mild chest pains as well Associated symptoms: Reports chest pain; Denies chills, fever(s), headache(s), nausea or vomiting Review of Systems 2 Const: Reports: fatigue and malaise; Denies: fever(s), chills, body aches or change in appetite ENMT: Denies: throat pain or dental pain Card: Reports: chest pain Resp: Denies: dyspnea GI: Denies: abdominal pain, nausea, vomiting or diarrhea Musc: Denies: neck pain or back pain Skin/Breast: Denies: rash Neuro: Denies: headache(s) PFSH ED 2 PFSH: Medical History Stroke HTN (hypertension) Hyperlipidemia Carotid artery stenosis left- 60% ICA stenosis in 2020. right s/p endartarectomy Family History Denies family history of Diabetes CAD (coronary artery disease) Stroke Social History Smoking and tobacco/nicotine status: current every day tobacco/nicotine user Alcohol intake: never Substance/Drug Use: never Female Reproductive History: Spontaneous abortions: No Date of menopause: 0 06/30/04 Physical Exam 2 Const: COMMON NORMALS: no acute distress, patient oriented x3 and healthy appearing HENMT: COMMON NORMALS: normocephalic and atraumatic HEAD & SCALP: n ormocephalic and atraumatic Eye: COMMON NORMALS: Equal, round and reactive pupils present and EOMs intact bilaterally PUPIL: Yes Equal, round and reactive pupils present Neck/C-Spine: COMMON NORMALS: full ROM and supple Chest: COMMONS NORMALS: normal inspection of the chest Resp: COMMON NORMALS: normal respiratory effort, No retractions, No use of accessory muscles and clear to auscultation bilaterally AUSCULTATION: clear to auscultation bilaterally Cardio: COMMON NORMALS: regular rate, regular rhythm and No murmurs present (Cardio) RATE: regular rate RHYTHM: regular rhythm Extremity: COMMON NORMALS: normal to inspection and full ROM Neuro: COMMON NORMALS: patient oriented x3, moves all extremities and no focal motor deficits SPEECH: speech normal MOTOR EXAM: 5/5 motor strength present throughout Psych: COMMON NORMALS: mental status grossly normal, Normal thought process present and cooperative THOUGHT PROCESS: Normal thought process present Skin: COMMON NORMALS: no rashes or lesions noted and no wounds GENERAL SKIN EXAM: no rashes or lesions noted Course 2 Vital Signs: Vital signs: Vital Signs Temperature 98.3 F 01/28/24 13:37 Pulse Rate 67 01/28/24 16:32 Respiratory Rate 18 01/28/24 13:37 Blood Pressure 153/61 01/28/24 16:32 Pulse Oximetry 99 01/28/24 16:32 Oxygen Delivery Me thod Room Air 01/28/24 16:32 MDM - Weakness Medical Decision Making Patient presents here having some generalized weakness going on for weeks she felt anxious today and had some chest pains as well her second troponin is positive with a delta of 13 we will give her Lovenox and admit for NSTEMI I did speak to cardiology along with the hospitalist Medical Records I reviewed the patient's medical records. Lab Data I reviewed the patient's lab results. 01/28/24 14:10 01/28/24 14:[address] 01/28/24 13:43 IMPRESSION: 1. No evidence of intracranial hemorrhage or mass effect. 2. Tiny chronic lacunar infarct RIGHT caudate and LEFT alex. 3. Vascular calcification. 4. No acute intracranial findings. Laboratory Results WBC 10.03 10^3/uL (3.29-11.43) 01/28/24 14:10 RBC 3.94 10^6/uL (3.85-5.65) 01/28/24 14:10 Hgb 12.00 g/dL (11.27-16.99) 01/28/24 14:10 Hct 34.6 % (36-47) L 01/28/24 14:10 MCV 87.8 fl (85-98) 01/28/24 14:10 MCH 30.5 pg (27-33) 01/28/24 14:10 MCHC 34.7 g/dL (30-55) 01/28/24 14:10 RDW 12.2 % (12.1-15.1) 01/28/24 14:10 Plt Count 228 10^3/cmm (157-399) 01/28/24 14:10 MPV 11.3 fL (7.4-10.4) H 01/28/24 14:10 Neut % (Auto) 71.1 % 01/28/24 14:10 Lymph % (Auto) 18.2 % 01/28/24 14:10 [place] % (Auto) 9.0 % 01/28/24 14:10 Eos % (Auto) 0.7 % 01/28/24 14:10 Baso % (Auto) 0.4 % 01/28/24 14:10 Neut # (Auto) 7.13 10^3/uL (1.8-7.7) 01/28/24 14:10 Lymph # (Auto) 1.8 10^3/uL (0.8-4.8) 01/28/24 14:10 [place] # (Auto) 0.9 10^3/uL (0.2-0.9) 01/28/24 14:10 Eos # (Auto) 0.1 10^3/uL (0.0-0.8) 01/28/24 14:10 Baso # (Auto) 0.0 10^3/uL (0.0-0.1) 01/28/24 14:10 Nucleated RBC % (auto) 0 % 01/28/24 14:10 Nucleated RBCs # 0.0 /100WBC 01/28/24 14:10 Sodium 129 mmol/L (136-145) L 01/28/24 14:10 Potassium 4.9 mmol/L (3.5-5.1) 01/28/24 14:10 Chloride 97 mmol/L (98-107) L 01/28/24 14:10 Carbon Dioxide 18 mmol/L (22-29) L 01/28/24 14:10 Anion Gap 18.9 (5-19) 01/28/24 14:10 BUN 18 mg/dL (8-23) 01/28/24 14:10 Creatinine 0.9 mg/dL (0.5-0.9) 01/28/24 14:10 GFR Calculation 63.2 mL/min (90-130) L 01/28/24 14:10 Glucose 134 mg/dL (65-115) H 01/28/24 14:10 Calculated Osmolality 272 mOsm/kg (285-295) L 01/28/24 14:10 Calcium 9.2 mg/dL (8.5-10.5) 01/28/24 14:10 Total Bilirubin 0.2 mg/dL (0.15-1.2) 01/28/24 14:10 AST 21 U/L (0-32) 01/28/24 14:10 ALT 21 U/L (0-33) 01/28/24 14:10 Alkaline Phosphatase 115 U/L (35-105) H 01/28/24 14:10 Troponin T Baseline 10 ng/L (0-10) 01/28/24 14:10 Troponin T 120 Minute 23.54 ng/L (0-10) H 01/28/24 15:57 Delta Troponin T 13.54 ABS# (0-10) H* 01/28/24 15:57 Total Protein 7.2 g/dL (6.6-8.7) 01/28/24 14:10 Albumin 4.4 g/dL (3.5-5.2) 01/28/24 14:10 Globulin 2.8 g/dL (1.3-4.6) 01/28/24 14:10 Urine Color Yellow (Yellow) 01/28/24 14:56 Urine Appearance Cloudy (CLEAR) A 01/28/24 14:56 Urine pH 5.5 (5-7) 01/28/24 14:56 Ur Specific [place] 1.014 (1.005-1.030) 01/28/24 14:56 Urine Protein Negative (Negative) 01/28/24 14:56 Urine Glucose (UA) Negative (Normal) 01/28/24 14:56 Urine Ketones Negative (Negative) 01/28/24 14:56 Urine Blood Negative (Negative) 01/28/24 14:56 Urine Nitrate Negative (Negative) 01/28/24 14:56 Urine Bilirubin Negative (Negative) 01/28/24 14:56 Urine Urobilinogen 1.0 mg/dL (Negative) 01/28/24 14:56 Ur Leukocyte Esterase 3+ (Negative) A 01/28/24 14:56 Urine RBC 0-2 /hpf (0-2) 01/28/24 14:56 Urine WBC 21-50 /hpf (0-5) 01/28/24 14:56 Ur Squamous Epith Cells 21-50 /hpf (0-5) 01/28/24 14:56 Amorphous Sediment Not Reportable 01/28/24 14:56 Urine Bacteria 4+ /hpf (NONE) H 01/28/24 14:56 Hyaline Casts 3.30 /lpf 01/28/24 14:56 All radiology interpretation(s) finalized by discharge EKG Data EKG 1: I personally reviewed and interpreted this EKG as follows: EKG interpretation date: 01/28/24 EKG interpretation time: 13:59 Interpretation: sinus alex hr [address] or t wave abnormalities qrs 83 qtc 367 EKG 2: I personally reviewed and interpreted this EKG as follows: EKG interpretation date: 01/28/24 EKG interpretation time: 16:03 Interpretation: nsr hr [address] or t wave abnormalities qrs 80 qtc 367 Discharge Plan Discharge Patient Disposition: Admitted As Inpatient Clinical Impression: Non-ST elevation [place] (NSTEMI) Condition: Stable Prescriptions: No Action multivitamin Tablet 1 tab PO DAILY losartan 100 mg tablet See Rx Instructions .ROUTE .COMPLEX Qty: 90 2RF Dose Instruction: TAKE 1 TABLET BY MOUTH EVERY DAY Rx Instructions: TAKE 1 TABLET BY MOUTH EVERY DAY rosuvastatin [Crestor] 20 mg tablet 20 mg PO DAILY Qty: 90 3RF amlodipine 5 mg tablet See Rx Instructions .ROUTE .COMPLEX Qty: 180 3RF Dose Instruction: TAKE 1 TABLET BY MOUTH TWICE DAILY FOR HYPERTENSION (HIGH BLOOD PRESSURE) Rx Instructions: TAKE 1 TABLET BY MOUTH TWICE DAILY FOR HYPERTENSION (HIGH BLOOD PRESSURE) clopidogrel 75 mg tablet See Rx Instructions .ROUTE .COMPLEX Qty: 90 3RF Dose Instruction: TAKE 1 TABLET BY MOUTH DAILY Rx Instructions: TAKE 1 TABLET BY MOUTH DAILY nebivolol [Bystolic] 20 mg tablet 20 mg PO DAILY Qty: 90 1RF nifedipine 90 mg tablet extended release 90 mg PO DAILY Qty: 90 3RF Rx Instructions: needs appt clonidine HCl 0.2 mg tablet 0.2 mg PO TID Qty: 90 6RF nitroglycerin [Nitrostat] 0.4 mg tablet, sublingual 0.4 mg sublingual Q5M PRN (Reason: chest pain) Qty: 30 3RF Referrals: Antonia Lainez FNP [Primary Care Provider] - Coding Level of Care Code ED Manager Developmental for Chg Jovanny
[2024-01-28] MEDS: LORazepam 2 mg/mL INJ 1 mL 0.5 MG IVP (14:05)
[2024-01-28 14:23] LABS: Basophils % 0.4 %; Eosinophils # 0.1 10^3/uL (0.0-0.8); Eosinophils % 0.7 %; Hematocrit 34.6 % (36-47); Lymphocytes # 1.8 10^3/uL (0.8-4.8); Lymphocytes % 18.2 %; Mean Corpuscular HGB Conc 34.7 g/dL (30-55); Mean Corpuscular Hemoglobin 30.5 pg (27-33); Mean Corpuscular Volume 87.8 fl (85-98); Mean Platelet Volume 11.3 fL (7.4-10.4); Monocytes # 0.9 10^3/uL (0.2-0.9); Neutrophils # 7.13 10^3/uL (1.8-7.7); Neutrophils % 71.1 %; Nucleated Red Blood Cells % 0 %; Platelet Count 228 10^3/cmm (157-399); Red Blood Count 3.94 10^6/uL (3.85-5.65); Red Cell Distribution Width 12.2 % (12.1-15.1); White Blood Count 10.03 10^3/uL (3.29-11.43)
[2024-01-28 14:40] LABS: Alanine Aminotransferase 21 U/L (0-33); Albumin Level 4.4 g/dL (3.5-5.2); Alkaline Phosphatase 115 U/L (35-105); Anion Gap 18.9 (5-19); Aspartate Amino Transferase 21 U/L (0-32); Blood Urea Nitrogen 18 mg/dL (8-23); Calcium 9.2 mg/dL (8.5-10.5); Carbon Dioxide 18 mmol/L (22-29); Chloride 97 mmol/L (98-107); Creatinine Clr Calc Pharmacy 62.4704; Globulin 2.8 g/dL (1.3-4.6); Glomerular Filtration Rate 63.2 mL/min (90-130); Glucose 134 mg/dL (65-115); Osmolality Calculated 272 mOsm/kg (285-295); Potassium 4.9 mmol/L (3.5-5.1); Sodium 129 mmol/L (136-145); Total Bilirubin 0.2 mg/dL (0.15-1.2); Total Protein 7.2 g/dL (6.6-8.7)
[2024-01-28 14:41] LABS: Troponin(5th) Baseline 10 ng/L (0-10)
[2024-01-28 15:01] LABS: Charge for UA Resulting for Rev
[2024-01-28 15:04] LABS: Bilirubin Urine Negative (Negative); Blood Urine Negative (Negative); Glucose Urine UA Negative (Normal); Ketones Urine Negative (Negative); Leukocyte Esterase Urine 3+ (Negative); Nitrate Urine Negative (Negative); Protein Urine Negative (Negative); Specific Gravity, Urine 1.014 (1.005-1.030); Urine Appearance Cloudy (CLEAR); Urine Color Yellow (Yellow); pH Urine 5.5 (5-7)
[2024-01-28 15:06] LABS: Bacteria Urine 4+ /hpf; RBC Urine 0-2 /hpf (0-2); Squamous Epithelial Cell Urine 21-50 /hpf (0-5); WBC Urine 21-50 /hpf (0-5)
[2024-01-28] MEDS: sodium chloride 0.9% 1,000 ML 999 ML IV (15:11)
--- NOTE | 2024-01-28 16:03 | ECG_ITS ---
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 Measurements Intervals [place] Rate: 60 P: 58 [place]: 171 QRS: 33 QRSD: 80 T: 53 QT: 366 QTc: 368 Interpretive Statements SINUS RHYTHM Compared to ECG 01/28/2024 13:59:42 Sinus bradycardia no longer present Electronically Signed On 01-28-2024 17:15:42 CDT by Jaya Harman M.D. [id number]
[2024-01-28 16:22] LABS: Troponin 5 2HR 23.54 ng/L (0-10)
[2024-01-28 16:38] LABS: Troponin 5 2HR Delta 13.54 ABS# (0-10)
[2024-01-28] MEDS: enoxaparin 80 mg/0.8 mL Syringe 70 MG SUBCUT (17:18)
--- NOTE | 2024-01-28 17:46 | P.CONIM_ITS ---
Providers/Reason For Consult 2 Consulting Physician/Specialty*: Jaya Harman MD/ Cardiology Reason for Consult*: NSTEMI Requesting Physician: Dr Donovan Attending Physician: Boby Danielle MD Primary Care Provider: Antonia Lainez APN History of Present Illness History of Present Illness Linnea James is a 63 year old female with past medical history of hypertension, carotid artery stenosis currently getting workup for intervention who had a recent stress test secondary to chest pain episodes which was abnormal. Today she felt discomfort in the right arm, possible transient numbness and chest pain. In the emergency room initial troponin was 10 that has trended up to 23 at 2 hours. No current chest pain. Initial EKG shows sinus bradycardia with no significant ST-T wave changes. Recent echo had showed normal LV systolic function. Review of Systems 2 Const: Denies: fever(s) Eyes: Denies: change in vision ENMT: Denies: throat pain Card: Reports: chest pain Resp: Denies: dyspnea GI: Denies: abdominal pain : Denies: flank pain Medications/Allergies Home Medications Medication Instructions Recorded Confirmed Last Taken Type multivitamin 1 tab PO DAILY 08/22/19 01/28/24 01/27/24 History rosuvastatin 20 mg tablet (Crestor) 20 mg PO DAILY #90 tabs 01/15/23 01/28/24 01/27/24 Rx nebivolol 20 mg tablet (Bystolic) 20 mg PO DAILY #90 tabs 10/19/23 01/28/24 01/27/24 Rx nifedipine 90 mg tablet,extended 90 mg PO DAILY #90 tabs 12/23/23 01/28/24 01/27/24 Rx release clonidine HCl 0.2 mg tablet 0.2 mg PO TID #90 tabs 01/19/24 01/28/24 01/27/24 Rx nitroglycerin 0.4 mg sublingual 0.4 mg sublingual Q5M PRN chest 01/23/24 01/28/24 Unknown Rx tablet (Nitrostat) pain #30 tabs amlodipine 5 mg tablet 5 mg PO DAILY 01/28/24 01/28/24 01/27/24 History clopidogrel 75 mg tablet 75 mg PO DAILY 01/28/24 01/28/24 01/27/24 History losartan 100 mg tablet 100 mg PO DAILY 01/28/24 01/28/24 01/27/24 History Allergies Allergy/AdvReac Type Severity Reaction Status Date / Time No Known Allergies Allergy Verified 12/11/23 10:18 PFSH Acute 2 PFSH: Medical History Stroke HTN (hypertension) Hyperlipidemia Carotid artery stenosis left- 60% ICA stenosis in 2020. right s/p endartarectomy Family History Denies family history of Diabetes CAD (coronary artery disease) Stroke Social History Smoking and tobacco/nicotine status: current every day tobacco/nicotine user Alcohol intake: never Substance/Drug Use: never Female Reproductive History: Spontaneous abortions: No Date of menopause: 0 06/30/04 Vitals/I&O/Wt Last Vital Signs Temp 98.3 F 01/28/24 13:37 Pulse 67 01/28/24 16:32 Resp 18 01/28/24 13:37 BP 153/61 01/28/24 16:32 Pulse Ox 99 01/28/24 16:32 O2 Del Method Room Air 01/28/24 16:32 01/28/24 01/28/24 01/28/24 06:59 14:59 22:59 Intake Total 1000 / 1000 Balance 1000 / 1000 Weight last 48 hrs Weight 160 lb Physical Exam 2 Narrative: GENERAL: Patient is alert, awake and oriented x3. [] NECK: No jugular vein distension. [] HEENT: No cyanosis. No icterus. No pallor. [] HEART: Regular S1 and S2. No murmur, rub or gallop. [] LUNGS: Clear to auscultate bilaterally. [] CENTRAL NERVOUS SYSTEM: Grossly nonfocal. [] EXTREMITIES: Lower extremities with 1+ edema bilaterally. Data 01/29/24 04:13 01/29/24 04:13 A&P Assessment and plan (1) Non-ST elevation [place] (NSTEMI): (2) Chest pain: Qualifiers: Chest pain type: other chest pain Qualified Code(s): R07.89 - Other chest pain (3) HTN (hypertension): Qualifiers: Hypertension type: primary hypertension Qualified Code(s): I10 - Essential (primary) hypertension (4) Hyperlipidemia: Qualifiers: Hyperlipidemia type: unspecified Qualified Code(s): E78.5 - Hyperlipidemia, unspecified (5) Carotid artery stenosis: Plan Patient has presented with chest discomfort episodes with mild troponin elevation. Findings consistent with NSTEMI. Recent stress test had significant abnormalities. TID ratio was also elevated. Will proceed with coronary angiogram with possible PCI. Risks and benefits of the procedure been discussed. Continue current medications including aspirin and Plavix. Patient started on lovenox Thank you for involving us with care of this patient. We will continue to follow. Please call with questions. Consult Attestations 2 Medical Necessity Statement: Care expected to cross 2 midnights. Coding Level of Care Code Acute Code for [facility] Diagnoses Non-ST elevation [place] (NSTEMI) I21.4 Other chest pain R07.89 Chest pain type: other chest pain Primary hypertension I10 Hypertension type: primary hypertension Hyperlipidemia, unspecified hyperlipidemia type E78.5 Hyperlipidemia type: unspecified Carotid artery stenosis I65.29
--- NOTE | 2024-01-28 17:46 | P.HP_ITS ---
Providers/Chief Complaint 2 Admitting Physician: Boby Danielle MD Primary Care Provider: Antonia Lainez APN Chief Complaint: Weakness x1 week History of Present Illness Linnea James is a 63 year old female with history of carotid disease, following up with vascular surgery in [place], presented today with chief complaint of chest pain. Patient is stating that she has been very anxious lately, she has been experiencing numbness and tingling of right arm, she became very anxious thinking about her carotid disease today started having chest pain which she is describing as pressure-like sensation which lasted for about 5 and 10 minutes, improved with nitroglycerin, she has been experiencing chest discomfort with exertional activities as well, has quit smoking a year ago. Recently had a stress test done as well. In the ER she has been diagnosed with non-STEMI, therapeutic Lovenox administered. She is chest pain-free at the time of evaluation She is stating that she will need anxiolytics before she goes to bed. Review of Systems 2 Const: Denies: fever(s) Eyes: Denies: change in vision ENMT: Denies: throat pain Card: Reports: chest pain Resp: Denies: dyspnea GI: Denies: abdominal pain : Denies: flank pain Medications/Allergies Home Medications Medication Instructions Recorded Confirmed Last Taken Type multivitamin 1 tab PO DAILY 08/22/19 12/16/23 Unknown History rosuvastatin 20 mg tablet (Crestor) 20 mg PO DAILY #90 tabs 01/15/23 12/16/23 Unknown Rx amlodipine 5 mg tablet See Rx Instructions .Route 04/29/23 12/16/23 Unknown Rx .COMPLEX #180 tabs clopidogrel 75 mg tablet See Rx Instructions .Route 04/29/23 12/16/23 Unknown Rx .COMPLEX #90 tabs losartan 100 mg tablet See Rx Instructions .Route 05/12/23 12/16/23 Unknown Rx .COMPLEX #90 tabs nebivolol 20 mg tablet (Bystolic) 20 mg PO DAILY #90 tabs 10/19/23 12/16/23 Unknown Rx nifedipine 90 mg tablet,extended 90 mg PO DAILY #90 tabs 12/23/23 Unknown Rx release clonidine HCl 0.2 mg tablet 0.2 mg PO TID #90 tabs 01/19/24 Unknown Rx nitroglycerin 0.4 mg sublingual 0.4 mg sublingual Q5M PRN chest 01/23/24 Unknown Rx tablet (Nitrostat) pain #30 tabs Allergies Allergy/AdvReac Type Severity Reaction Status Date / Time No Known Allergies Allergy Verified 12/11/23 10:18 PFSH Acute 2 PFSH: Medical History Stroke HTN (hypertension) Hyperlipidemia Carotid artery stenosis left- 60% ICA stenosis in 2020. right s/p endartarectomy Family History Denies family history of Diabetes CAD (coronary artery disease) Stroke Social History Smoking and tobacco/nicotine status: current every day tobacco/nicotine user Alcohol intake: never Substance/Drug Use: never Female Reproductive History: Spontaneous abortions: No Date of menopause: 0 06/30/04 Vitals/I&O/Wt Last Vital Signs Temp 98.3 F 01/28/24 13:37 Pulse 67 01/28/24 16:32 Resp 18 01/28/24 13:37 BP 153/61 01/28/24 16:32 Pulse Ox 99 01/28/24 16:32 O2 Del Method Room Air 01/28/24 16:32 01/28/24 01/28/24 01/28/24 06:59 14:59 22:59 Intake Total 1000 / 1000 Balance 1000 / 1000 Weight last 48 hrs Weight 72.575 kg Physical Exam 2 Narrative: Awake and alert Chest pain free Anxious. Euvolemic GCS 15 S1, S2 Currently on room air Nonfocal neuroexam Eating dinner Data 01/28/24 14:10 01/28/24 14:10 A&P Assessment and plan (1) Non-ST elevation [place] (NSTEMI): (2) Carotid artery stenosis: (3) HTN (hypertension): Qualifiers: Hypertension type: primary hypertension Qualified Code(s): I10 - Essential (primary) hypertension (4) Chest pain: Qualifiers: Chest pain type: other chest pain Qualified Code(s): R07.89 - Other chest pain Plan Non-STEMI No active chest pain Start ACS protocol Therapeutic Lovenox Aspirin Plavix I will not repeat echo as it was done recently Recently had a positive stress test Hypertensive urgency Will give her anxiolytics and optimize and evidence of regimen hold off on clonidine for now Carotid disease following up with vascular surgery at [place] Anxiety disorder: Could use Ativan on as-needed basis N.p.o. to midnight Angiogram in the morning Cardiology consulted Attestations 2 Medical Necessity Statement*: Anticipating more than 2 midnights for management of non-STEMI Diagnoses Non-ST elevation FL (NSTEMI) I21.4 Carotid artery stenosis I65.29 Primary hypertension I10 Hypertension type: primary hypertension Other chest pain R07.89 Chest pain type: other chest pain
--- NOTE | 2024-01-28 19:02 | USCV_ITS ---
Jacob Linnea Age: 63 Gender: F : 1960 Exam Date: 01/28/2024 20:11 Ordering Phys: Boby Danielle MD Technologist: YADY Exam Location: [facility] [place] Indication: NSTEMI, weakness BP: 135 / 69 HR: 64 Rhythm: Sinus Technical Quality: Adequate MEASUREMENTS (Male / Female) Normal Values 2D ECHO LV Diastolic Diameter PLAX 4.4 cm 4.2 - 5.9 / 3.9 - 5.3 cm IVS Diastolic Thickness 1.3 cm 0.6 - 1.0 / 0.6 - 0.9 cm IVS Systolic Thickness 1.6 cm LVPW Diastolic Thickness 1.5 cm 0.6 - 1.0 / 0.6 - 0.9 cm LVPW Systolic Thickness 2.0 cm LVOT Diameter 1.8 cm LV Ejection Fraction 2D Teich 63.6 % LV Ejection Fraction MOD 4C 51.7 % LV Ejection Fraction MOD 2C 57.6 % LV Ejection Fraction 2C AL 59.8 % LA Diameter 3.3 cm LA Sys Volume AL 45.0 cm cubed LA Sys Volume Index AL 29.9 cm cubed/m squared Aorta at Sinotubular Diameter 2.8 cm IVC Diameter 1.2 cm M-MODE LA Ao Ratio MM 1.7 AV Cusp Separation MM 1.8 cm DOPPLER AV Peak Velocity 150.0 cm/s LVOT Peak Velocity 94.0 cm/s AV Area Cont Eq vti 2.2 cm squared AV Area Cont Eq pk 1.7 cm squared MV Peak Velocity 129.0 cm/s MV Area PHT 3.7 cm squared Mitral E to A Ratio 0.8 TV Peak Velocity 271.5 cm/s TR Peak Velocity 294.0 cm/s TR Peak Gradient 34.6 mmHg TV Peak E Velocity 50.0 cm/s Right Atrial Pressure 3.0 mmHg Pulmonary Artery Systolic Pressu 37.6 mmHg PV Peak Velocity 111.0 cm/s FINDINGS Left Ventricle Left ventricle is normal in size. LV systolic function is normal with EF 55 to 60%. No regional wall motion abnormalities are seen. Grade 1 diastolic dysfunction. Right Ventricle Normal in size and function Right Atrium Normal in size Left Atrium Normal in size Mitral Valve Structurally normal mitral valve. Mild mitral regurgitation. Aortic Valve Aortic valve is thickened. No significant stenosis or regurgitation. Tricuspid Valve Mild tricuspid regurgitation. RVSP is 35 to 40 mmHg. This is consistent with mild pulmonary hypertension. Pulmonic Valve Not well visualized Pericardium Normal Aorta Normal in size IVC Appears to be normal CONCLUSIONS LV systolic function is normal with EF of 55-60% Grade 1 diastolic dysfunction Mild mitral regurgitation Mild tricuspid regurgitation Mild pulmonary hypertension Jaya Harman MD (Electronically Signed) Final Date: 29 January 2024 09:13 S
[2024-01-28] MEDS: aspirin 325 mg EC Tablet PO (19:34)
[2024-01-28] MEDS: clopidogrel 300 mg Tablet PO (19:34)
[2024-01-28] MEDS: losartan 50 mg Tablet 100 MG PO (19:37)
[2024-01-28 20:41] LABS: Troponin 5 6HR 17.92 ng/L (0-10); Troponin 5 6HR Delta 7.92 ng/L (0-12)
--- NOTE | 2024-01-28 20:50 | ECG_ITS ---
[facility] Test Date: 2024-01-28 Pat Name: Linnea James Department: Room: 111 Gender: Female Digital Coordinator: : 1960 Requested By: Lila Donovan Order Number: [id number] Geovanna MD: Jaya Harman M.D. Measurements Intervals [place] Rate: 66 P: 55 DC: 181 QRS: 33 QRSD: 82 T: 68 QT: 350 QTc: 369 Interpretive Statements SINUS RHYTHM POSSIBLE ANTERIOR MYOCARDIAL INFARCTION , PROBABLY OLD [30 ms Q WAVE IN V3/V4, OR R < 0.2 mV IN V4] Compared to ECG 01/28/2024 16:03:44 Myocardial infarct finding now present Electronically Signed On 01-29-2024 9:07:10 CDT by Jaya Harman M.D. [id number]
[2024-01-28] MEDS: LORazepam 0.5 mg Tablet PO (21:49)
[2024-01-29] VITALS (8 sets, daily range): BP systolic 151–174; BP diastolic 73–89; PULSE 63–69; RESP 16–20; TEMP 36.6–36.8; O2SAT 91–98
[2024-01-29 04:47] LABS: Basophils # 0.1 10^3/uL (0.0-0.1); Basophils % 0.8 %; Eosinophils # 0.2 10^3/uL (0.0-0.8); Eosinophils % 2.2 %; Hematocrit 36.8 % (36-47); Lymphocytes # 3.6 10^3/uL (0.8-4.8); Lymphocytes % 39.7 %; Mean Corpuscular HGB Conc 33.4 g/dL (30-55); Mean Corpuscular Hemoglobin 30.4 pg (27-33); Mean Corpuscular Volume 90.9 fl (85-98); Mean Platelet Volume 11.1 fL (7.4-10.4); Monocytes % 11.4 %; Neutrophils # 4.13 10^3/uL (1.8-7.7); Neutrophils % 45.6 %; Nucleated Red Blood Cells % 0 %; Platelet Count 236 10^3/cmm (157-399); Red Blood Count 4.05 10^6/uL (3.85-5.65); Red Cell Distribution Width 12.4 % (12.1-15.1); White Blood Count 9.05 10^3/uL (3.29-11.43)
[2024-01-29] MEDS: diphenhydrAMINE 50 mg Capsule PO (05:01)
[2024-01-29] MEDS: sodium chloride 0.9% 1,000 ML 50 ML IV (05:01)
[2024-01-29 05:11] LABS: Anion Gap 16.7 (5-19); Blood Urea Nitrogen 15 mg/dL (8-23); Calcium 9.3 mg/dL (8.5-10.5); Carbon Dioxide 21 mmol/L (22-29); Chloride 106 mmol/L (98-107); Creatinine Clr Calc Pharmacy 62.3419; Glomerular Filtration Rate 63.2 mL/min (90-130); Glucose 93 mg/dL (65-115); Magnesium 1.9 mg/dL (1.7-2.3); Osmolality Calculated 289 mOsm/kg (285-295); Potassium 4.7 mmol/L (3.5-5.1); Sodium 139 mmol/L (136-145)
--- NOTE | 2024-01-29 05:19 | XACV_ITS ---
Exam Room: [facility] Ht: 163 cm Wt: 72 kg BSA: 1.82 m2 Gender: Female : 1960 Any Known Allergies: No known allergies Exam Priority: Routine Procedure(s): Procedure Description: Diagnostic procedure Procedure Description: Left Heart Catheterization Procedure Description: Left ventriculography Procedure Description: Coronary Angiography Diagnostic Cath Status: Urgent Diagnostic Findings * INDICATION: Non ST elevation [place]. * Left Main: Severe distal vessel 70% stenosis, RIMA: 3 flow. * Proximal Left Anterior Descending: heavily calcified, 95-99% stenosis, RIMA: 2 flow. * Proximal Right Coronary Artery: chronic total occlusion, RIMA: 0 flow. Collateral blood supply seen from contralateral side. * Circumflex has no disease. * Coronary angiography shows right dominance. Conclusions 1. Severe multivessel coronary artery disease including left main artery stenosis. 2. Normal left ventricular systolic function. Ejection fraction of 65%. Recommendations * We will transfer patient for CABG evaluation as has multivessel coronary artery disease. Interventional RX Recommendation: CABG Diagnostic RX Recommendation: CABG Ventriculography Ejection Fraction: 65.0 % Pressures Phase:Rest AO : 175 / 82 ( 113 ) @ 7:21:00 AM 131 / 94 ( 112 ) @ 7:23:00 AM 157 / 82 ( 114 ) @ 7:26:00 AM 172 / 80 ( 117 ) @ 7:32:00 AM 172 / 80 ( 117 ) @ 7:32:00 AM LV : 175 / -14 / 12 @ 7:30:00 AM 100 / -7 / 11 @ 7:31:00 AM 168 / -8 / 22 @ 7:31:00 AM 168 / -8 / 21 @ 7:32:00 AM Valves Phase:DefaultPhase AV : 0.0 @ 6:59:16 AM AV Mean Gradient: 0.0 @ 6:59:16 AM Clinical Evaluation EBL: 5mL-10mL Procedural Details Procedure Consent Obtained. Current Diagnosis : NSTEMI. Pre-Procedure Time Out. Identified patient by full name and date of as verbalized by the patient/guarantor. Does the consent match the physician's order: Yes. Accurate & Complete Informed Consent: Yes. Inpatient/Outpatient History & Physical on Chart: Yes. If H&P is completed, is and addenduem needed: No; If yes, is the addendum complete: N/A. Visualize and Verify Site with Patient/Guarantor: N/A. Relevant Radiology Images available: Yes. Pre-op teaching completed and patient verbalized understanding. The risks, benefits, and alternatives of sedation and/or procedure were discussed by physician. The patient agrees to continue. Procedure started. [facility] Clinical Fraility Score: 3: Managing Well. Social Service Liaison Indications: ACS > 24 hours. Chest Pain Symptom Assessment: Typical Angina Symptoms. Current diagnosis: Chest Pain. PERRLA. Strong, equal hand methods specialist bilaterally. Lungs clear x 5 lobes. IV Site on Arrival: 18 gauge in the left anticubital. IV Fluids: 0.9% NaCl at KVO. 0 mL infused prior to blood bank laboratory technician. Pre Procedural Pulses: bilateral dorsalis pedis was 3+. Pre Procedural Pulses: bilateral posterior tibial was 3+. Pre Procedural Pulses: right radial was 3+. Oxygen started at 2liters/min via nasal canula. bilateral groins was prepped with chloroprep then draped in the usual sterile fashion. Baseline sample Acquired. HR: 34 BPM. Physician notified. Physician arrived. Physician scrubbed in. Immediate Pre-Procedure Time Out. Correct Patient: Yes; Correct Procedure: Yes; Correct Site: Yes; Correct Patient Position: Yes; Correct Supplies: Yes; Dried Flammable Prep: Yes; Blood Products Available: N/A;. Lidocaine 1% infiltrated to the right groin. Arterial access obtained with micropuncture set. A 5 gibraltarian JL4 catheter in over wire. Multiple views taken of left coronary artery. Catheter removed over the standard wire. A 5 gibraltarian JR4 catheter in over wire. A view taken of right coronary artery. Catheter removed over the standard wire. A 5 gibraltarian Angled Pig catheter in over wire. EDP Sample taken: LV 175/-15,12; HR: 84 BPM; SpO2: 92%. LV gram performed in ANTONIO @ 10 mL/second for a total of 30 mL. EDP Sample taken: LV 100/-8,11; HR: 81 BPM; SpO2: 93%. EDP Sample taken: LV 168/-9,22; HR: 70 BPM; SpO2: 95%. Pullback taken: LV 168/-9,21; AO 172/80(117); Mean: 0mmHg, Peak to Peak: 0mmHg, SEP: 7sec/min; HR: 71 BPM; SpO2: 94%. Catheter removed over the standard wire. A Right femoral angiogram was performed to determine safe placement of closure device. A Manual Compression was successful obtaining hemostatsis at the Right Femoral artery insertion site. Post Procedure: Pulses reassessed and unchanged. PERRLA. Strong, equal hand methods specialist bilaterally. No VTE prophylaxis required. Medication's Wasted: Lidocaine 1% = 10 mL. Medication's Wasted: Heparin = 1000 units. Total IV fluids: 30 mL. Post-op diagnosis: Multi-Vessel CAD. Complications: None. Estimated blood loss: 5mL-10mL. Responsiveness - Normal response to verbal stimuli; alert and oriented, PERRLA. Airway - Unaffected, no intervention required; spontaneous ventilation. Circulation: W/N/L, pulses unchanged. Nausea/Vomiting: No. Procedure completed. Patient transferred by bed to 1st floor. Vital chart was stopped. Access Site Site: Right Femoral artery Sheath Size: 6 Fr Hemostasis Method: Manual Compression Hemostasis Success: Successful Procedure Medications Start: 6:05 AM Stop: 6:05 AM Medication: Fentanyl Amount: 50 mcg Route: I.V. Start: 6:17 AM Stop: 6:17 AM Medication: Versed Amount: 1 mg Route: I.V. Start: 6:20 AM Stop: 6:20 AM Medication: Versed Amount: 1 mg Route: I.V. Start: 6:20 AM Stop: 6:20 AM Medication: Fentanyl Amount: 50 mcg Route: I.V. I, the attending physician, have reviewed and verified all procedure medications. Yes, all medications given per verbal order History/Risk Factors Hypertension: Yes Dyslipidemia: Yes Peripheral Arterial Disease (PAD): No Myocardial Infarction ([place]): No Obesity: No Renal Disease: No Tobacco Use: Current/Recent(w/in 1 year) Prior 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 PCI: No CABG: No Valve Surgery: No Report Signatures Finalized by Jaya Harman MD on 01/29/2024 09:21 AM
--- NOTE | 2024-01-29 06:02 | PC.NURSE ---
Patient transfered off the unit in bed for Cardiac Cath procedure.
--- NOTE | 2024-01-29 06:15 | P.HPUD_ITS ---
Surgery/Procedure H&P Update DATE OF PROCEDURE: January 29, 2024 DATE H&P PERFORMED: 01/28/24 H&P UPDATE INFORMATION: I have reviewed H&P completed within last 30 days, I have examined patient prior to procedure and No changes to prior documentation PREOP DIAGNOSIS: NSTEMI/ Abnormal stress test PRIMARY INDICATION FOR PROCEDURE: NSTEMI/ Abnormal stress test PLANNED PROCEDURE: Operation Date: 01/29/24 06:00 Proposed Procedures p Cardiac Catheterization(Left) - Jaya Harman M.D Possible percutaneous coronary intervention PATIENT REASSESSED PRIOR TO SEDATION, WITH NO CHANGE NOTED: Yes PHYSICAL EXAM: alert, oriented x 3, clear to auscultation bilaterally and regular rate & rhythm AIRWAY EVAL/ANESTHESIA PLAN: normal airway, ASA III, Local Anesthesia, Risks, benefits & alternatives of sedation and/or procedure discussed and Patient a grees to continue as planned ADDITIONAL INFORMATION: Moderate sedation
--- NOTE | 2024-01-29 07:09 | PM.PN ---
Subjective Subjective: Patient is overall doing well. 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 Vitals/I&O/Wt Last Vital Signs Temp 98.0 F 01/29/24 03:40 Pulse 66 01/29/24 05:30 Resp 16 01/29/24 03:40 BP 164/73 01/29/24 03:40 Pulse Ox 95 01/29/24 03:40 O2 Del Method Nasal Cannula 01/29/24 03:40 O2 Flow Rate 2 01/29/24 03:40 01/28/24 01/29/24 01/29/24 22:59 06:59 14:59 Intake Total 1000 / 1000 Output Total 120 / 120 Balance 880 / 880 Weight last 48 hrs Weight 159 lb 4.8 oz Weight 163 lb 14.4 oz Weight 160 lb Physical Exam Narrative: GENERAL: Patient is alert, awake and oriented x3. [] NECK: No jugular vein distension. [] HEENT: No cyanosis. No icterus. No pallor. [] HEART: Regular S1 and S2. No murmur, rub or gallop. [] LUNGS: Clear to auscultate bilaterally. [] CENTRAL NERVOUS SYSTEM: Grossly nonfocal. [] EXTREMITIES: Lower extremities with 1+ edema bilaterally. Data 01/29/24 04:13 01/29/24 04:13 A&P Assessment and plan (1) Non-ST elevation [place] (NSTEMI): (2) Chest pain: Qualifiers: Chest pain type: other chest pain Qualified Code(s): R07.89 - Other chest pain (3) HTN (hypertension): Qualifiers: Hypertension type: primary hypertension Qualified Code(s): I10 - Essential (primary) hypertension (4) Hyperlipidemia: Qualifiers: Hyperlipidemia type: unspecified Qualified Code(s): E78.5 - Hyperlipidemia, unspecified (5) Carotid artery stenosis: Plan Patient has multivessel coronary artery disease. Will plan on transferring to facility with CT surgery availability as needs CABG evaluation Continue aspirin Thank you for involving us with care of this patient. We will continue to follow. Please call with questions. Attestations Medical Necessity Statement*: Care expected to cross 2 midnights. Coding Level of Care Code Acute Code for Chg Fwd Diagnoses Non-ST elevation [place] (NSTEMI) I21.4 Other chest pain R07.89 Chest pain type: other chest pain Primary hypertension I10 Hypertension type: primary hypertension Hyperlipidemia, unspecified hyperlipidemia type E78.5 Hyperlipidemia type: unspecified Carotid artery stenosis I65.29
--- NOTE | 2024-01-29 07:21 | PC.NURSE ---
Patient returned from [place] at 0705. Order was also given to hold the 0700 dose of Lovenox per provider in [place].
[2024-01-29] MEDS: clopidogrel 75 mg Tablet PO (08:13)
[2024-01-29] MEDS: aspirin 81 mg EC Tablet PO (08:14)
[2024-01-29] MEDS: atorvastatin 40 mg Tablet 80 MG PO (08:14)
[2024-01-29] MEDS: losartan 50 mg Tablet 100 MG PO (08:14)
[2024-01-29] MEDS: NIFEdipine ER (24 hr) 30 mg Tablet 90 MG PO (08:14)
--- NOTE | 2024-01-29 08:48 | PC.CHAP ---
Pastoral Care Encounter/Spiritual Assessment Type of Contact [] Declined solder sprayer visit [] Patient/Family/Request visit [] Outpatient visit [] Follow-up visit [] Physician referral [] Code/Alert [x] Routine visit [] Staff referral [] Actively dying [] Patient sleeping [x] Family support [] [] Out of room [] Palliative care [] [] Receiving care in room [] Pre-surgical visit [] Trauma [] Long length of stay [] ICU visit [] Other: Relational/Emotional Strength [x] Patient feels connected with others/family/visitors/staff [] Distress [] Loneliness/isolation [] Abandonment Spirituality of Patient [x] Person of Luci [] Attends Pentecostalism of their Luci [x] Believes in Prayer [] Reads Bible or Congregational materials [] There are Spiritual issues to be addressed 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 [x] Prayer [x] Active listening [] Non-anxious presence [x] Spiritual/emotional support [] Crisis/trauma care [] Spiritual counseling [] Bereavement support [] Provided bereavement packet [] Provided Bible/devotional materials [] Provided toy/stuffed animal, coloring book to patient or family member [] Provided Communion [] Anointing/[place] [] Salvation [x] Completed spiritual assessment [] Other: Impact on Illness or Injury [] Angry [] Fearful [] Anxious [] Often cries [] Exhaustion [] Unable to work [] Unable to attend tenriism [] Unable to walk/stand [] Unable to read [] Unable to drive [] Unable to eat/drink [] Unable to sleep [] Unable to be with family [] Patient intubated [] Other: Summary Time spent with patient 5 min
--- NOTE | 2024-01-29 10:41 | P.TS_ITS ---
Transfer Summary Providers Date of Admission: 01/28/24 17:31 Date of Discharge/Transfer: 01/29/24 Attending Provider at Admission: Boby Danielle MD Attending Provider at Transfer: Boby Danielle MD Primary Care Provider: Antonia Lainez APN Transfer Plans: Anticipated date of transfer: 01/29/24 . Diagnoses at Discharge Discharge Diagnosis (1) Non-ST elevation [place] (NSTEMI): Status: Acute (2) Chest pain: Status: Acute Qualifiers: Chest pain type: other chest pain Qualified Code(s): R07.89 - Other chest pain (3) HTN (hypertension): Status: Acute Qualifiers: Hypertension type: primary hypertension Qualified Code(s): I10 - Essential (primary) hypertension (4) Hyperlipidemia: Status: Acute Qualifiers: Hyperlipidemia type: unspecified Qualified Code(s): E78.5 - Hyperlipidemia, unspecified (5) Carotid artery stenosis: Status: Acute Reason for Visit Reason for Visit Weakness x1 week Hospital Course Hospital Course 63-year-old female who present to the hospital with non-STEMI she was put on ACS protocol on admission, angiogram was done next day by Dr. Hines which showed triple-vessel disease patient will be needing CABG, she will need to be transferred to [facility] under care of Dr. Fernández. Patient is chest pain- free, has been on therapeutic Lovenox along aspirin, will hold Plavix for CABG. Patient is agreeable for the transfer, Dr. Hines has spoken with cardiology at [facility]. Please note during hospitalization we have been optimizing her antihypertensive regimen blood pressures fluctuating between 155 -174 mmHg systolic, diastolic around 80s millimeters mercury. Physical Exam Narrative: Awake and alert GCS 15 Nonfocal neuroexam Chest pain. Currently on room air TS Data Studies Completed and Pending Completed Studies During Hospitalization Category Date Time Status CT head wo con* [id number] Stat Cat Scan 01/28/24 13:43 Completed SLATE TRIMMER request for service Routine Exams 01/29/24 05:19 Completed CV. echo complete* [id number] Routine Ultrasound 01/28/24 19:02 Completed Laboratory Last Values WBC 9.05 10^3/uL (3.29-11.43) 01/29/24 04:13 RBC 4.05 10^6/uL (3.85-5.65) 01/29/24 04:13 Hgb 12.30 g/dL (11.27-16.99) 01/29/24 04:13 Hct 36.8 % (36-47) 01/29/24 04:13 MCV 90.9 fl (85-98) 01/29/24 04:13 MCH 30.4 pg (27-33) 01/29/24 04:13 MCHC 33.4 g/dL (30-55) 01/29/24 04:13 RDW 12.4 % (12.1-15.1) 01/29/24 04:13 Plt Count 236 10^3/cmm (157-399) 01/29/24 04:13 MPV 11.1 fL (7.4-10.4) H 01/29/24 04:13 Neut % (Auto) 45.6 % 01/29/24 04:13 Lymph % (Auto) 39.7 % 01/29/24 04:13 Hyde % (Auto) 11.4 % 01/29/24 04:13 Eos % (Auto) 2.2 % 01/29/24 04:13 Baso % (Auto) 0.8 % 01/29/24 04:13 Neut # (Auto) 4.13 10^3/uL (1.8-7.7) 01/29/24 04:13 Lymph # (Auto) 3.6 10^3/uL (0.8-4.8) 01/29/24 04:13 Hyde # (Auto) 1.0 10^3/uL (0.2-0.9) H 01/29/24 04:13 Eos # (Auto) 0.2 10^3/uL (0.0-0.8) 01/29/24 04:13 Baso # (Auto) 0.1 10^3/uL (0.0-0.1) 01/29/24 04:13 Nucleated RBC % (auto) 0 % 01/29/24 04:13 Nucleated RBCs # 0.0 /100WBC 01/29/24 04:13 Sodium 139 mmol/L (136-145) 01/29/24 04:13 Potassium 4.7 mmol/L (3.5-5.1) 01/29/24 04:13 Chloride 106 mmol/L (98-107) 01/29/24 04:13 Carbon Dioxide 21 mmol/L (22-29) L 01/29/24 04:13 Anion Gap 16.7 (5-19) 01/29/24 04:13 BUN 15 mg/dL (8-23) 01/29/24 04:13 Creatinine 0.9 mg/dL (0.5-0.9) 01/29/24 04:13 GFR Calculation 63.2 mL/min (90-130) L 01/29/24 04:13 Glucose 93 mg/dL (65-115) 01/29/24 04:13 Calculated Osmolality 289 mOsm/kg (285-295) 01/29/24 04:13 Calcium 9.3 mg/dL (8.5-10.5) 01/29/24 04:13 Magnesium 1.9 mg/dL (1.7-2.3) 01/29/24 04:13 Total Bilirubin 0.2 mg/dL (0.15-1.2) 01/28/24 14:10 AST 21 U/L (0-32) 01/28/24 14:10 ALT 21 U/L (0-33) 01/28/24 14:10 Alkaline Phosphatase 115 U/L (35-105) H 01/28/24 14:10 Troponin T Baseline 10 ng/L (0-10) 01/28/24 14:10 Troponin T 120 Minute 23.54 ng/L (0-10) H 01/28/24 15:57 Delta Troponin T 13.54 ABS# (0-10) H* 01/28/24 15:57 Troponin T Hi Sens 6Hr 17.92 ng/L (0-10) H 01/28/24 20:18 Troponin T Hi Sens 6Hr Delta 7.92 ng/L (0-12) 01/28/24 20:18 Total Protein 7.2 g/dL (6.6-8.7) 01/28/24 14:10 Albumin 4.4 g/dL (3.5-5.2) 01/28/24 14:10 Globulin 2.8 g/dL (1.3-4.6) 01/28/24 14:10 Urine Color Yellow (Yellow) 01/28/24 14:56 Urine Appearance Cloudy (CLEAR) A 01/28/24 14:56 Urine pH 5.5 (5-7) 01/28/24 14:56 Ur Specific Rochelle 1.014 (1.005-1.030) 01/28/24 14:56 Urine Protein Negative (Negative) 01/28/24 14:56 Urine Glucose (UA) Negative (Normal) 01/28/24 14:56 Urine Ketones Negative (Negative) 01/28/24 14:56 Urine Blood Negative (Negative) 01/28/24 14:56 Urine Nitrate Negative (Negative) 01/28/24 14:56 Urine Bilirubin Negative (Negative) 01/28/24 14:56 Urine Urobilinogen 1.0 mg/dL (Negative) 01/28/24 14:56 Ur Leukocyte Esterase 3+ (Negative) A 01/28/24 14:56 Urine RBC 0-2 /hpf (0-2) 01/28/24 14:56 Urine WBC 21-50 /hpf (0-5) 01/28/24 14:56 Ur Squamous Epith Cells 21-50 /hpf (0-5) 01/28/24 14:56 Amorphous Sediment Not Reportable 01/28/24 14:56 Urine Bacteria 4+ /hpf (NONE) H 01/28/24 14:56 Hyaline Casts 3.30 /lpf 01/28/24 14:[address] 01/28/24 13:43 IMPRESSION: 1. No evidence of intracranial hemorrhage or mass effect. 2. Tiny chronic lacunar infarct RIGHT caudate and LEFT alex. 3. Vascular calcification. 4. No acute intracranial findings. Recent Clincial Data Last Vital Signs Temp 97.9 F 01/29/24 07:51 Pulse 68 01/29/24 07:51 Resp 20 H 01/29/24 07:51 BP 174/80 01/29/24 08:14 Pulse Ox 98 01/29/24 07:51 O2 Del Method Nasal Cannula 01/29/24 07:51 O2 Flow Rate 2 01/29/24 03:40 Vital Signs Temp Pulse Resp BP BP Pulse Ox O2 Del Method 01/29/24 08:14 174/80 01/29/24 07:51 97.9 F 68 20 H 157/83 98 Nasal Cannula 01/29/24 07:37 63 16 91 Room Air 01/29/24 07:23 63 164/80 91 Room Air 01/29/24 05:30 66 01/29/24 03:40 98.0 F 66 16 164/73 95 Nasal Cannula 01/29/24 00:14 98.2 F 66 16 151/73 95 Room Air 01/28/24 23:17 74 O2 Flow Rate 01/29/24 08:14 01/29/24 07:51 01/29/24 07:37 01/29/24 07:23 01/29/24 05:30 01/29/24 03:40 2 01/29/24 00:14 01/28/24 23:17 Intake & Output/Weight 01/27/24 01/28/24 01/29/24 01/30/24 06:59 06:59 06:59 06:59 Intake Total 1000 / 1000 120 / 120 Output Total 120 / 120 300 / 300 Balance 880 / 880 -180 / -180 Weight 72.257 kg Vitals Last Vital Signs Temp 97.9 F 01/29/24 07:51 Pulse 68 01/29/24 07:51 Resp 20 H 01/29/24 07:51 BP 174/80 01/29/24 08:14 Pulse Ox 98 01/29/24 07:51 O2 Del Method Nasal Cannula 01/29/24 07:51 O2 Flow Rate 2 01/29/24 03:40 TS Medications Medications Acetaminophen (Acetaminophen 500 Mg Tablet) 500 mg PO Q4H PRN PRN Reason: fever Albuterol/Ipratropium (Ipratropium-Albuterol 3 Ml Neb) 3 ml INHALATION Q6H PRN PRN Reason: SHORTNESS OF BREATH Aspirin (Aspirin 81 Mg Ec Tablet) 81 mg PO DAILY [facility] Last Admin: 01/29/24 08:14 Dose: 81 mg Atorvastatin Calcium (Atorvastatin 40 Mg Tablet) 80 mg PO DAILY [facility] Last Admin: 01/29/24 08:14 Dose: 80 mg Clopidogrel Bisulfate (Clopidogrel 75 Mg Tablet) 75 mg PO DAILY [facility] Last Admin: 01/29/24 08:13 Dose: 75 mg Enoxaparin Sodium (Enoxaparin 80 Mg/0.8 Ml Syringe) 70 mg 1 mg/kg (70 mg) SUBCUT Q12H [facility] Last Admin: 01/29/24 07:21 Dose: Not Given Sodium Chloride (Sodium Chloride 0.9%) 1,000 mls @ 50 mls/hr IV .Q20H ONE Stop: 01/30/24 00:59 Last Admin: 01/29/24 05:01 Dose: 50 mls/hr Lorazepam (Lorazepam 0.5 Mg Tablet) 0.5 mg PO TID PRN PRN Reason: ANXIETY Last Admin: 01/28/24 21:49 Dose: 0.5 mg Losartan Potassium (Losartan 50 Mg Tablet) 100 mg PO DAILY [facility] Last Admin: 01/29/24 08:14 Dose: 100 mg Nifedipine (Nifedipine Er (24 Hr) 30 Mg Tablet) 90 mg PO DAILY [facility] Last Admin: 01/29/24 08:14 Dose: 90 mg Nitroglycerin (Nitroglycerin 0.4 Mg Sublingual Tablet) 0.4 mg SUBLINGUAL Q5M PRN PRN Reason: chest pain Non-Formulary Medication (Nebivolol [Bystolic]) 20 mg PO DAILY [facility] Ondansetron HCl (Ondansetron 2 Mg/Ml Sdv 2 Ml) 4 mg IVP Q6H PRN PRN Reason: NAUSEA AND VOMITING Discontinued Medications Aspirin (Aspirin 325 Mg Ec Tablet) 325 mg PO ONCE ONE Stop: 01/28/24 19:03 Last Admin: 01/28/24 19:34 Dose: 325 mg Clopidogrel Bisulfate (Clopidogrel 300 Mg Tablet) 300 mg PO ONCE ONE Stop: 01/28/24 19:03 Last Admin: 01/28/24 19:34 Dose: 300 mg Diphenhydramine HCl (Diphenhydramine 50 Mg Capsule) 50 mg PO ONCE ONE Stop: 01/29/24 05:01 Last Admin: 01/29/24 05:01 Dose: 50 mg Enoxaparin Sodium (Enoxaparin 80 Mg/0.8 Ml Syringe) 70 mg SUBCUT ONCE ONE Stop: 01/28/24 16:44 Last Admin: 01/28/24 17:18 Dose: 70 mg Enoxaparin Sodium (Enoxaparin 100 Mg/Ml Syringe) 70 mg 1 mg/kg (70 mg) SUBCUT Q12H [facility] Fentanyl (Fentanyl 50 Mcg/Ml Inj 2ml) Confirm Administered Dose 100 mcg .ROUTE .STK-MED ONE Stop: 01/29/24 05:51 Heparin Sodium (Porcine) (Heparin 5,000 Unit/Ml Inj 1 Ml) Confirm Administered Dose 5,000 unit .ROUTE .STK-MED ONE Stop: 01/29/24 05:05 Sodium Chloride (Sodium Chloride 0.9%) 1,000 mls @ 999 mls/hr IV .Q1H1M ONE Stop: 01/28/24 15:49 Last Infusion: 01/28/24 17:19 Dose: Infused Lidocaine HCl (Xylocaine) Confirm Administered Dose 20 mls @ as directed .ROUTE .STK-MED ONE Stop: 01/29/24 06:14 Lorazepam (Lorazepam 2 Mg/Ml Inj 1 Ml) 0.5 mg IVP ONCE ONE Stop: 01/28/24 13:46 Last Admin: 01/28/24 14:05 Dose: 0.5 mg Midazolam HCl (Midazolam 1 Mg/Ml Inj 2 Ml) Confirm Administered Dose 2 mg .ROUTE .STK-MED ONE Stop: 01/29/24 05:51 Allergies No Known Allergies Allergy (Verified 12/11/23 10:18) Home Medications multivitamin 1 tab PO DAILY 08/22/19 [History Confirmed 01/28/24] rosuvastatin 20 mg tablet (Crestor) 20 mg PO DAILY #90 tabs 01/15/23 [Rx Confirmed 01/28/24] nebivolol 20 mg tablet (Bystolic) 20 mg PO DAILY #90 tabs 10/19/23 [Rx Confirmed 01/28/24] nifedipine 90 mg tablet,extended release 90 mg PO DAILY #90 tabs 12/23/23 [Rx Confirmed 01/28/24] clonidine HCl 0.2 mg tablet 0.2 mg PO TID #90 tabs 01/19/24 [Rx Confirmed 01/28/24] nitroglycerin 0.4 mg sublingual tablet (Nitrostat) 0.4 mg sublingual Q5M PRN chest pain #30 tabs 01/23/24 [Rx Confirmed 01/28/24] amlodipine 5 mg tablet 5 mg PO DAILY 01/28/24 [History Confirmed 01/28/24] clopidogrel 75 mg tablet 75 mg PO DAILY 01/28/24 [History Confirmed 01/28/24] losartan 100 mg tablet 100 mg PO DAILY 01/28/24 [History Confirmed 01/28/24] Discharge Plan Discharge Patient Disposition: Home Condition: Stable Prescriptions: New aspirin 81 mg Tablet,Delayed Release (Dr/Ec) 81 mg PO DAILY Qty: 90 0RF atorvastatin 40 mg Tablet 80 mg PO DAILY Qty: 90 0RF Continued multivitamin Tablet 1 tab PO DAILY rosuvastatin [Crestor] 20 mg tablet 20 mg PO DAILY Qty: 90 3RF nebivolol [Bystolic] 20 mg tablet 20 mg PO DAILY Qty: 90 1RF nifedipine 90 mg tablet extended release 90 mg PO DAILY Qty: 90 3RF Rx Instructions: needs appt nitroglycerin [Nitrostat] 0.4 mg tablet, sublingual 0.4 mg sublingual Q5M PRN (Reason: chest pain) Qty: 30 3RF amlodipine 5 mg tablet 5 mg PO DAILY losartan 100 mg tablet 100 mg PO DAILY clopidogrel 75 mg tablet 75 mg PO DAILY Discontinued clonidine HCl 0.2 mg tablet 0.2 mg PO TID Qty: 90 6RF Discharge Orders: Discharge Order (Routine); Ordered 01/29/24 Ordered By: Boby Danielle Referrals: Antonia Lainez FNP [Primary Care Provider] - Patient Instructions: Opioid Safety Transfer Attestations Time Spent in Transfer Care: greater than 30 min Quality Metrics Clinical Quality Measures [ No reported AMI, CVA or VTE this stay] Coding Level of Care Code Acute Code for [facility] Diagnoses Non-ST elevation DE (NSTEMI) I21.4 Other chest pain R07.89 Chest pain type: other chest pain Primary hypertension I10 Hypertension type: primary hypertension Hyperlipidemia, unspecified hyperlipidemia type E78.5 Hyperlipidemia type: unspecified Carotid artery stenosis I65.29
[2024-01-29] MEDS: acetaminophen 500 mg Tablet PO (10:54)
[2024-01-29] MEDS: LORazepam 0.5 mg Tablet PO (13:32)
--- NOTE | 2024-01-29 15:28 | PC.NURSE ---
Report is called to [facility] to Sanjay Johnston RN at [phone]. Patient will be in room 343 bed 1. Patient is calling her family to inform them.
--- NOTE | 2024-01-29 15:35 | PC.NURSE ---
Patient went to GI lab for EGD at 1505.
--- NOTE | 2024-01-29 16:39 | PC.NURSE ---
Patient left by EMS, Tapan Franklin at 1635 to [facility] in [place].
== END 2024-01-29 16:37 | disposition short-term general hospital (02) | DRG 282 ==
LOC: ER 16:52 → CSU 21:43
PROVIDERS: Internal Medicine; Admitting Provider Internal Medicine; Emergency Provider Emergency Medicine; PCP Nurse Practitioner; Visit Provider Internal Medicine
PROC: 4A023N7 Measurement of Cardiac Sampling and Pressure, Left Heart, Percutaneous Approach (ICD-10-PCS; principal; 2024-01-29 06:00)
DX: I21.4 Non-ST elevation (NSTEMI) myocardial infarction (principal); I10 Essential (primary) hypertension; I16.0 Hypertensive urgency; E78.5 Hyperlipidemia, unspecified; F41.9 Anxiety disorder, unspecified; Z87.891 Personal history of nicotine dependence; Z79.02 Long term (current) use of antithrombotics/antiplatelets; I25.10 Atherosclerotic heart disease of native coronary artery without angina pectoris; I65.23 Occlusion and stenosis of bilateral carotid arteries; Z86.73 Personal history of transient ischemic attack (TIA), and cerebral infarction without residual deficits
CPT/HCPCS: 36415; 70450; 80048; 80053; 81003; 81015; 83735; 84484; 85025; 93005; 93306; 93458; 96372; 96374; 96375; 99152; 99153; 99285; C1760; C1769; C1887; C1894; G0269; J1644; J1650; J2060; J2250; J3010; J7030; Q0163; Q9967

== ENCOUNTER → 2024-03-15 11:26 | Outpatient (BNVA) | payer OTHER, SELFPAY | PROVIDERS: PCP Nurse Practitioner; Visit Provider Internal Medicine Cardiovascular Disease | DX: R00.1 Bradycardia, unspecified (principal); R94.31 Abnormal electrocardiogram [ECG] [EKG]; R07.9 Chest pain, unspecified | CPT/HCPCS: 93005 ==

== ENCOUNTER 2024-12-28 17:15 | Emergency (ER) | payer OTHER, SELFPAY ==
[2024-12-28 17:17] VITALS: BP 171/65; PULSE 68; RESP 16; TEMP 36.6; O2SAT 95
--- NOTE | 2024-12-28 17:17 | XRR_ITS ---
PROCEDURE INFORMATION: Exam: XR Chest Exam date and time: 12/28/2024 5:19 PM Age: 64 years old Clinical indication: Cough and dyspnea; Prior surgery; Surgery date: 6+ months; Surgery type: Open heart; Additional info: Dyspnea/cough TECHNIQUE: Imaging protocol: Radiologic exam of the chest. Views: 1 view. COMPARISON: CR XR chest 1V portable [id number] 09/20/2023 8:32 PM FINDINGS: Lungs: Unremarkable. No consolidation. Pleural spaces: Unremarkable. No pleural effusion. No pneumothorax. Heart/Mediastinum: Unremarkable. No cardiomegaly. Vasculature: Mildly tortuous thoracic aorta with atherosclerotic calcifications. Bones/joints: Post median sternotomy and CABG. XR/XR chest 1V portable [id number] IMPRESSION: No acute cardiopulmonary findings.
--- NOTE | 2024-12-28 17:18 | W.ED.GENADLT ---
Documented by User: Ignacio Erazo DO 12/30/24 06:34 HPI - General Adult General: Chief complaint: General Medical Stated complaint: HTN Time Seen by Provider: 12/28/24 17:19 History of Present Illness: 64-year-old female with a known history of coronary artery disease presents emergency room complaining of elevated blood pressure. At home her systolic was greater than 200 she has not had any chest pain. She is not currently on any antihypertensives she has had some dizziness and no weakness. The dizziness began approximately 2 days ago. Patient has had other vascular issues including carotid stenosis she has had a right carotid endarterectomy. She has taken all of her medications today particularly her clopidogrel and atorvastatin and aspirin. Patient with history of triple bypass surgery one year ago and known left carotid artery partial blockage presents with dizziness. Symptoms began upon waking Friday morning, improved throughout the day, and were mild on Friday. Dizziness recurred and worsened at work today, described as a spinning sensation, especially when changing head position or lying flat. No recent cold, sinus, or ear infection. Denies hearing changes. Reports similar dizziness in the past, discussed with assistive technology specialist. Concerned about possible stroke due to history of carotid disease and elevated blood pressure (noted at 200/100+). No mention of chest pain, shortness of breath, or focal neurological deficits. Reports skin irritation at site of monitoring stickers, non-itchy, started during current visit. Associated symptoms: Deny chest pain, dyspnea or rash Related Data Home Medications ?Medication ?Instructions ?Recorded ?Confirmed multivitamin 1 tab PO DAILY 08/22/19 01/28/24 Previous Rx's ?Medication ?Instructions ?Recorded nitroglycerin 0.4 mg sublingual 0.4 mg sublingual Q5M PRN chest 01/23/24 tablet (Nitrostat) pain #30 tabs aspirin 81 mg tablet,delayed 81 mg PO DAILY #90 tabs 01/29/24 release losartan 100 mg tablet 100 mg PO DAILY #90 tabs 04/13/24 metoprolol succinate 50 mg 50 mg PO DAILY #90 tabs 04/13/24 tablet,extended release 24 hr amlodipine 5 mg tablet See Rx Instructions .Route 05/14/24 .COMPLEX #180 tabs clopidogrel 75 mg tablet See Rx Instructions .Route 05/14/24 .COMPLEX #90 tabs atorvastatin 40 mg tablet 80 mg (2 x 40 mg) PO DAILY #90 tabs 07/08/24 clonidine HCl 0.2 mg tablet 0.2 mg PO TID #240 tabs 10/05/24 meclizine 50 mg tablet 50 mg PO BID PRN dizziness #20 tabs 12/28/24 Allergies Allergy/AdvReac Type Severity Reaction Status Date / Time No Known Allergies Allergy Verified 09/20/24 10:04 Review of Systems Const: Denies: fever(s) or chills Card: Denies: chest pain Resp: Denies: dyspnea GI: Denies: abdominal pain : Denies: dysuria, urinary frequency or urinary urgency Musc: Denies: neck pain or back pain Skin/Breast: Denies: rash PFSH ED PFSH: Medical History Non-ST elevation NV (NSTEMI) Chest pain Stroke HTN (hypertension) Hyperlipidemia Carotid artery stenosis Family History Denies family history of Diabetes CAD (coronary artery disease) Stroke Social History Smoking and tobacco/nicotine status: former use of tobacco/nicotine Alcohol intake: never Substance/Drug Use: never Female Reproductive History: Spontaneous abortions: No Date of menopause: 06/30/04 Physical Exam Const: GENERAL APPEARANCE: cooperative ORIENTATION/CONSCIOUSNESS: Yes awake, Yes oriented to person, Yes oriented to place and Yes oriented to time HENMT: COMMON NORMALS: normocephalic, atraumatic and hearing grossly normal bilaterally HEAD & SCALP: normocephalic and atraumatic Resp: COMMON NORMALS: normal respiratory effort, No retractions, No use of accessory muscles and clear to auscultation bilaterally AUSCULTATION: clear to auscultation bilaterally Cardio: COMMON NORMALS: regular rate, regular rhythm and No murmurs present (Cardio) RATE: regular rate RHYTHM: regular rhythm GI: COMMON NORMALS: Soft to palpation and No hepatosplenomegaly present AUSCULTATION: Yes normoactive bowel sounds PALPATION: Yes Soft to palpation, No Tenderness to palpation present (GI), No Guarding due to palpation present (GI) and Yes No hepatosplenomegaly present Extremity: COMMON NORMALS: normal to inspection, capillary refill normal, no clubbing, cyanosis or edema, no calf tenderness and no pedal edema Neuro: SENSORIUM/ORIENTATION: Yes oriented to person, Yes oriented to place and Yes oriented to time OTHER: No focal neurologic deficits noted. Abbreviated NIH was negative. Skin: COMMON NORMALS: no rashes or lesions noted GENERAL SKIN EXAM: no rashes or lesions noted Course Vital Signs: Vital signs: Vital Signs Temperature 97.9 F 12/28/24 17:17 Pulse Rate 74 12/28/24 21:48 Respiratory Rate 20 H 12/28/24 17:50 Blood Pressure 149/78 12/28/24 21:48 Pulse Oximetry 94 12/28/24 21:48 Oxygen Delivery Me thod Room Air 12/28/24 20:53 MDM - General Adult Medical Decision Making Care signed out to Dr. Dean at change of shift. See final notes for diagnosis and disposition. In summary, patient is seen for dizziness. Dizziness fatigues rapidly when she stops moving her head. CT of the brain shows nothing acute. We discussed that her symptoms are likely caused by BPPV and not necessarily a stroke given that symptoms are brought on with motion and better with rest. Dizziness improved significantly with oral meclizine. She will be discharged with a prescription for the same and follow-up to primary care as needed. Lab Data 12/28/24 17:31 12/28/24 18:34 Radiology Impressions Chest X-Ray 12/28/24 17:17 IMPRESSION: No acute cardiopulmonary findings. Head CT 12/28/24 17:50 IMPRESSION: 1. No acute intracranial findings. 2. Chronic/age-related changes as above. Laboratory Results WBC 8.62 10^3/uL (3.29-11.43) 12/28/24 17: RBC 3.87 10^6/uL (3.85-5.65) 12/28/24 17: Hgb 11.60 g/dL (11.27-16.99) 12/28/24 17: Hct 35.1 % (36-47) L 12/28/24 17:31 MCV 90.7 fl (85-98) 12/28/24 17: MCH 30.0 pg (27-33) 12/28/24 17: MCHC 33.0 g/dL (30-55) 12/28/24 17:31 RDW 12.7 % (12.1-15.1) 12/28/24 17: Plt Count 201 10^3/cmm (157-399) 12/28/24 17: MPV 12.0 fL (7.4-10.4) H 12/28/24 17: Neut % (Auto) 57.8 % 12/28/24 17: Lymph % (Auto) 28.5 % 12/28/24 17: [place] % (Auto) 10.4 % 12/28/24 17: Eos % (Auto) 2.4 % 12/28/24 17: Baso % (Auto) 0.7 % 12/28/24: Neut # (Auto) 4.97 10^3/uL (1.8-7.7) 12/28/24 17: Lymph # (Auto) 2.5 10^3/uL (0.8-4.8) 12/28/24 17: [place] # (Auto) 0.9 10^3/uL (0.2-0.9) 12/28/24 17: Eos # (Auto) 0.2 10^3/uL (0.0-0.8) 12/28/24: Baso # (Auto) 0.1 10^3/uL (0.0-0.1) 12/28/24 17: Nucleated RBC % (auto) 0 % 12/28/24 17: Nucleated RBCs # 0.0 /100WBC 12/28/24 17: Sodium 138 mmol/L (136-145) 12/28/24 18:34 Potassium 4.5 mmol/L (3.5-5.1) 12/28/24 18:34 Chloride 104 mmol/L (98-107) 12/28/24 18:34 Carbon Dioxide 18 mmol/L (22-29) L 12/28/24 18:34 Anion Gap 20.5 (5-19) H 12/28/24 18:34 BUN 17 mg/dL (8-23) 12/28/24 18:34 Creatinine 0.8 mg/dL (0.5-0.9) 12/28/24 18:34 GFR Calculation 72.2 mL/min (90-130) L 12/28/24 18:34 Glucose 82 mg/dL (65-115) 12/28/24 18:34 Calculated Osmolality 287 mOsm/kg (285-295) 12/28/24 18:34 Calcium 9.7 mg/dL (8.5-10.5) 12/28/24 18:34 Total Bilirubin 0.2 mg/dL (0.15-1.2) 12/28/24 18:34 AST 27 U/L (0-32) 12/28/24 18:34 ALT 25 U/L (0-33) 12/28/24 18:34 Alkaline Phosphatase 146 U/L (35-105) H 12/28/24 18:34 Total Protein 7.7 g/dL (6.6-8.7) 12/28/24 18:34 Albumin 4.5 g/dL (3.5-5.2) 12/28/24 18:34 Globulin 3.2 g/dL (1.3-4.6) 12/28/24 18:34 EKG Data EKG 1: Interpretation: EKG December 28, 2024 1729 normal sinus rhythm rate of 61 QTc of 361 DE interval of [address] changes are noted. Compared to EKG of 03/15/2024 T waves are now upright in the lateral leads. Q waves present in February 2024 are still present. Computer generated interpretation: Chest X-Ray 12/28/24 17:17 IMPRESSION: No acute cardiopulmonary findings. Head CT 12/28/24 17:50 IMPRESSION: 1. No acute intracranial findings. 2. Chronic/age-related changes as above. Discharge Plan Discharge Patient Disposition: Home Clinical Impression: Benign paroxysmal positional vertigo Condition: Stable Prescriptions: New meclizine 50 mg tablet 50 mg PO BID PRN (Reason: dizziness) Qty: 20 0RF No Action multivitamin Tablet 1 tab PO DAILY nitroglycerin [Nitrostat] 0.4 mg tablet, sublingual 0.4 mg sublingual Q5M PRN (Reason: chest pain) Qty: 30 3RF losartan 100 mg tablet 100 mg PO DAILY Qty: 90 3RF metoprolol succinate 50 mg tablet extended release 24 hr 50 mg PO DAILY Qty: 90 3RF clopidogrel 75 mg tablet See Rx Instructions .ROUTE .COMPLEX Qty: 90 3RF Dose Instruction: TAKE 1 TABLET BY MOUTH DAILY Rx Instructions: TAKE 1 TABLET BY MOUTH DAILY amlodipine 5 mg tablet See Rx Instructions .ROUTE .COMPLEX Qty: 180 3RF Dose Instruction: TAKE 1 TABLET BY MOUTH TWICE DAILY FOR HYPERTENSION (HIGH BLOOD PRESSURE) Rx Instructions: TAKE 1 TABLET BY MOUTH TWICE DAILY FOR HYPERTENSION (HIGH BLOOD PRESSURE) atorvastatin 40 mg tablet 80 mg PO DAILY Qty: 90 6RF clonidine HCl 0.2 mg tablet 0.2 mg PO TID Qty: 240 3RF aspirin 81 mg Tablet,Delayed Release (Dr/Ec) 81 mg PO DAILY Qty: 90 0RF Discharge Orders: Discharge ED (Routine); Ordered 12/28/24 Ordered By: Velasquez Dean Referrals: Antonia Lainez FNP [Primary Care Provider, Nurse Practitioner] Discharge Diet: Usual diet Discharge Activity: Increase activity as tolerated Patient Instructions: Benign Paroxysmal Positional Vertigo (ED), Patient Portal & Dwayne Instructions Print Language: Bermudian Coding Level of Care Code ED Insurance Service Representative for Chg Fwd Documented by User: Velasquez Dean MD 12/28/24 21:51 HPI - General Adult General: Chief complaint: General Medical Stated complaint: HTN Time Seen by Provider: 12/28/24 17:19 History of Present Illness: Patient with history of triple bypass surgery one year ago and known left carotid artery partial blockage presents with dizziness. Symptoms began upon waking Friday morning, improved throughout the day, and were mild on Friday. Dizziness recurred and worsened at work today, described as a spinning sensation, especially when changing head position or lying flat. No recent cold, sinus, or ear infection. Denies hearing changes. Reports similar dizziness in the past, discussed with assistive technology specialist. Concerned about possible stroke due to history of carotid disease and elevated blood pressure (noted at 200/100+). No mention of chest pain, shortness of breath, or focal neurological deficits. Reports skin irritation at site of monitoring stickers, non-itchy, started during current visit. Related Data Home Medications ?Medication ?Instructions ?Recorded ?Confirmed multivitamin 1 tab PO DAILY 08/22/19 01/28/24 Previous Rx's ?Medication ?Instructions ?Recorded nitroglycerin 0.4 mg sublingual 0.4 mg sublingual Q5M PRN chest 01/23/24 tablet (Nitrostat) pain #30 tabs aspirin 81 mg tablet,delayed 81 mg PO DAILY #90 tabs 01/29/24 release losartan 100 mg tablet 100 mg PO DAILY #90 tabs 04/13/24 metoprolol succinate 50 mg 50 mg PO DAILY #90 tabs 04/13/24 tablet,extended release 24 hr amlodipine 5 mg tablet See Rx Instructions .Route 05/14/24 .COMPLEX #180 tabs clopidogrel 75 mg tablet See Rx Instructions .Route 05/14/24 .COMPLEX #90 tabs atorvastatin 40 mg tablet 80 mg (2 x 40 mg) PO DAILY #90 tabs 07/08/24 clonidine HCl 0.2 mg tablet 0.2 mg PO TID #240 tabs 10/05/24 meclizine 50 mg tablet 50 mg PO BID PRN dizziness #20 tabs 12/28/24 Allergies Allergy/AdvReac Type Severity Reaction Status Date / Time No Known Allergies Allergy Verified 09/20/24 10:04 [facility] ED PFSH: Medical History Non-ST elevation NV (NSTEMI) Chest pain Stroke HTN (hypertension) Hyperlipidemia Carotid artery stenosis Family History Denies family history of Diabetes CAD (coronary artery disease) Stroke Social History Smoking and tobacco/nicotine status: former use of tobacco/nicotine Alcohol intake: never Substance/Drug Use: never Physical Exam Neuro: OTHER: Dizziness is worse with rapid motion of the head and resolves spontaneously within 10 seconds when she holds her head still and closes her eyes highly concerning for BPPV. Skin: OTHER: Very mild macular erythema on the dorsum of the right hand which is not raised or pruritic. Course Vital Signs: Vital signs: Vital Signs Temperature 97.9 F 12/28/24 17:17 Pulse Rate 74 12/28/24 21:48 Respiratory Rate 20 H 12/28/24 17:50 Blood Pressure 149/78 12/28/24 21:48 Pulse Oximetry 94 12/28/24 21:48 Oxygen Delivery Me thod Room Air 12/28/24 20:53 MDM - General Adult Medical Decision Making In summary, patient is seen for dizziness. Dizziness fatigues rapidly when she stops moving her head. CT of the brain shows nothing acute. We discussed that her symptoms are likely caused by BPPV and not necessarily a stroke given that symptoms are brought on with motion and better with rest. Dizziness improved significantly with oral meclizine. She will be discharged with a prescription for the same and follow-up to primary care as needed. Lab Data 12/28/24 17:31 12/28/24 18:34 Radiology Impressions Chest X-Ray 12/28/24 17:17 IMPRESSION: No acute cardiopulmonary findings. Head CT 12/28/24 17:50 IMPRESSION: 1. No acute intracranial findings. 2. Chronic/age-related changes as above. Laboratory Results WBC 8.62 10^3/uL (3.29-11.43) 12/28/24 17: RBC 3.87 10^6/uL (3.85-5.65) 12/28/24 17:31 Hgb 11.60 g/dL (11.27-16.99) 12/28/24 17:31 Hct 35.1 % (36-47) L 12/28/24 17:31 MCV 90.7 fl (85-98) 12/28/24 17:31 MCH 30.0 pg (27-33) 12/28/24 17: MCHC 33.0 g/dL (30-55) 12/28/24 17: RDW 12.7 % (12.1-15.1) 12/28/24 17:31 Plt Count 201 10^3/cmm (157-399) 12/28/24 17: MPV 12.0 fL (7.4-10.4) H 12/28/24 17:31 Neut % (Auto) 57.8 % 12/28/24 17: Lymph % (Auto) 28.5 % 12/28/24 17:31 [place] % (Auto) 10.4 % 12/28/24 17: Eos % (Auto) 2.4 % 12/28/24 17: Baso % (Auto) 0.7 % 12/28/24 17:31 Neut # (Auto) 4.97 10^3/uL (1.8-7.7) 12/28/24 17: Lymph # (Auto) 2.5 10^3/uL (0.8-4.8) 12/28/24 17: [place] # (Auto) 0.9 10^3/uL (0.2-0.9) 12/28/24 17: Eos # (Auto) 0.2 10^3/uL (0.0-0.8) 12/28/24 17: Baso # (Auto) 0.1 10^3/uL (0.0-0.1) 12/28/24: Nucleated RBC % (auto) 0 % 12/28/24: Nucleated RBCs # 0.0 /100WBC 12/28/24 17: Sodium 138 mmol/L (136-145) 12/28/24 18:34 Potassium 4.5 mmol/L (3.5-5.1) 12/28/24 18:34 Chloride 104 mmol/L (98-107) 12/28/24 18:34 Carbon Dioxide 18 mmol/L (22-29) L 12/28/24 18:34 Anion Gap 20.5 (5-19) H 12/28/24 18:34 BUN 17 mg/dL (8-23) 12/28/24 18:34 Creatinine 0.8 mg/dL (0.5-0.9) 12/28/24 18:34 GFR Calculation 72.2 mL/min (90-130) L 12/28/24 18:34 Glucose 82 mg/dL (65-115) 12/28/24 18:34 Calculated Osmolality 287 mOsm/kg (285-295) 12/28/24 18:34 Calcium 9.7 mg/dL (8.5-10.5) 12/28/24 18:34 Total Bilirubin 0.2 mg/dL (0.15-1.2) 12/28/24 18:34 AST 27 U/L (0-32) 12/28/24 18:34 ALT 25 U/L (0-33) 12/28/24 18:34 Alkaline Phosphatase 146 U/L (35-105) H 12/28/24 18:34 Total Protein 7.7 g/dL (6.6-8.7) 12/28/24 18:34 Albumin 4.5 g/dL (3.5-5.2) 12/28/24 18:34 Globulin 3.2 g/dL (1.3-4.6) 12/28/24 18:34 All radiology interpretation(s) finalized by discharge EKG Data EKG 1: Computer generated interpretation: Chest X-Ray 12/28/24 17:17 IMPRESSION: No acute cardiopulmonary findings. Head CT 12/28/24 17:50 IMPRESSION: 1. No acute intracranial findings. 2. Chronic/age-related changes as above. Discharge Plan Discharge Patient Disposition: Home Clinical Impression: Benign paroxysmal positional vertigo Condition: Stable Prescriptions: New meclizine 50 mg tablet 50 mg PO BID PRN (Reason: dizziness) Qty: 20 0RF No Action multivitamin Tablet 1 tab PO DAILY nitroglycerin [Nitrostat] 0.4 mg tablet, sublingual 0.4 mg sublingual Q5M PRN (Reason: chest pain) Qty: 30 3RF losartan 100 mg tablet 100 mg PO DAILY Qty: 90 3RF metoprolol succinate 50 mg tablet extended release 24 hr 50 mg PO DAILY Qty: 90 3RF clopidogrel 75 mg tablet See Rx Instructions .ROUTE .COMPLEX Qty: 90 3RF Dose Instruction: TAKE 1 TABLET BY MOUTH DAILY Rx Instructions: TAKE 1 TABLET BY MOUTH DAILY amlodipine 5 mg tablet See Rx Instructions .ROUTE .COMPLEX Qty: 180 3RF Dose Instruction: TAKE 1 TABLET BY MOUTH TWICE DAILY FOR HYPERTENSION (HIGH BLOOD PRESSURE) Rx Instructions: TAKE 1 TABLET BY MOUTH TWICE DAILY FOR HYPERTENSION (HIGH BLOOD PRESSURE) atorvastatin 40 mg tablet 80 mg PO DAILY Qty: 90 6RF clonidine HCl 0.2 mg tablet 0.2 mg PO TID Qty: 240 3RF aspirin 81 mg Tablet,Delayed Release (Dr/Ec) 81 mg PO DAILY Qty: 90 0RF Discharge Orders: Discharge ED (Routine); Ordered 12/28/24 Ordered By: Velasquez Dean Referrals: Antonia Lainez FNP [Primary Care Provider, Nurse Practitioner] Discharge Diet: Usual diet Discharge Activity: Increase activity as tolerated Patient Instructions: Benign Paroxysmal Positional Vertigo (ED), Patient Portal & Dwayne Instructions Print Language: Bermudian Coding Level of Care Code ED Insurance Service Representative for Chg Jovanny
--- OUTSIDE RECORDS SUMMARY | 2024-12-28 17:22 | XMS_ITS | Encounter Summary ---
Author Organization [facility] Address [address] Attn: Epic [place] [address] Care Team Providers Care Winter Sports Manager Name Role Phone Unavailable Primary Care Provider Unavailabl e Encounter Details Date Type Department Care Team (Late st Contact Info) Description 02/08/2000 Outpatient Historical Yvette Garces, LEGAL DEPARTMENT MANAGER [address] [place] [phone] Social History Tobacco Use Types Packs/Day Years Used Date Smoking Tobacco: Never Assessed Comments Unknown Sex and Gender Information Value Date Recorded Sex Assigned at Not on file 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
--- OUTSIDE RECORDS SUMMARY | 2024-12-28 17:22 | XMS_ITS | Clinical Summary ---
Author Organization [facility] Address [address] [place] [address] Phone Care Team Providers Care Service Engineer Name Role Phone Unavailable Primary Care Provider Unavailabl e Allergies No known active allergies Medications ALPRAZolam (XANAX) 0.25 mg tablet Take 0.25 mg by mouth 3 times daily as needed for Anxiety. Active FLUoxetine (PROzac) 20 mg capsule Take 20 mg by mouth daily. Active raNITIdine (ZANTAC) 150 mg tablet Take 150 mg by mouth daily. Active aspirin (ROBERT CHEWABLE) 81 mg Tablet, Chewable Take 81 mg by mouth daily. Active rosuvastatin (CRESTOR) 20 mg tablet Take 1 Tablet (20 mg) by mouth daily at bedtime. 30 Tablet 2 8 Active fenofibrate nanocrystallized (TRICOR) 145 mg tablet Take 1 Tablet (145 mg) by mouth daily. 30 Tablet 2 8 Active multivitamin (DAILY-PARTH) tablet Take 1 Tablet by mouth daily. 1 Tablet 8 Active clopidogrel (PLAVIX) 75 mg Tablet Take 1 Tablet (75 mg) by mouth daily. 30 Tablet 2 8 Active nicotine (NICODERM CQ) 21 mg/24 hr patch Apply 1 Patch to skin as directed daily. 1 Patch 8 Active hydroCHLOROthiazide (MICROZIDE) 12.5 mg capsule Take 1 Capsule by mouth daily. 8 Active cloNIDine HCl (CATAPRES) 0.1 mg tablet Take 0.1 mg by mouth 2 times daily . 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 08/09/2017 Immunizations Immunization Administration Dates Next Due Influenza Seasonal Unspecified Formulation IM Family History Medical History Relation Name Comments Heart Disease Father ms Healthy Mother Relation Name Status Comments Brother 1 Alive Brother 2 Alive Brother 3 Alive Father ms Mother Alive Social History Tobacco Use Types Packs/Day Years Used Date Smoking Tobacco: Every Day Cigarettes 1 25 Smokeless Tobacco: Never Comments:Currently smokes < 0.5 ppd - 08/25/17 Alcohol Use Standard Drinks/Week Comments Yes 1 (1 standard drink = 0.6 oz pur e alcohol) 1 glass every night Comments No Sex and Gender Information Value Date Recorded Sex Assigned at Not on file 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 Gender Identity Not on file Sexual Orientation Not on file Last Filed Vital Signs Vital Sign Reading Time Taken Comments Blood Pressure 150/80 04/07/2018 1:20 PM CDT Pulse 65 04/07/2018 1:20 PM CDT Temperature 37 C (98.6 F) 08/15/2017 11:31 AM FINAL ASSEMBLER BOAT Respiratory Rate 10 08/15/2017 6:00 AM FINAL ASSEMBLER BOAT Oxygen Saturation 97% 04/07/2018 1:20 PM CDT Inhaled Oxygen Concentration - - Weight 61.1 kg (134 lb 9.6 oz) 04/07/2018 1:20 P M CDT Height 163.8 cm (5' 4.5 ) 04/07/2018 1:20 PM CDT Body Mass Index 22.75 04/07/2018 1:20 PM CDT Plan of Treatment Health Maintenance Due Date Last Done Comments DTAP/TDAP/TD VACCINES (1 - Tdap) 11/21/1979 HPV/Cotest (21-29) 1981 CERVICAL CANCER SCREENING 1990 HPV/Cotest (30-65) 1990 PAP SMEAR 1990 BREAST CANCER SCREENING 2000 COLORECTAL SCREENING 2005 Colorectal Cancer Screening 2005 FIT-DNA Q 3 years 2005 FIT/FOBT Q 1 year 2005 Flex Sig/CT Colonography Q 5 years 2005 ZOSTER VACCINE (1 of 2) 2010 INFLUENZA VACCINE (#1) 2025 03/29/2017 RSV VACCINE (60+ or ) (1 - 1-dose 75+ series) 11/21/2035 Medical Devices Implanted Type Area Emergency Planning And Response Manager Device Identifier Shelf Expiration Date Model / Serial / Lot Patch Vascu-Guard [id number] - Sna Implanted:Qty: 1 on 08/12/2017 by Dave Anderson MD at [facility] Biological Right: Carotid [employer] 03/13/2022 [id number] / NA / [id number] [place] [address] Advance Directives For more information, please contact: [phone] * Full Code (Latest Code Status on File) Date Activated Date Inactivated Comments 08/14/2017 5:34 PM 08/15/2017 3:19 PM
--- OUTSIDE RECORDS SUMMARY | 2024-12-28 17:22 | XMS_ITS | Encounter Summary ---
Author Organization [facility] Address [address] [place] [address] Care Team Providers Care Coat Tailor Name Role Phone Unavailable Primary Care Provider Unavailabl e Encounter Details Date Type Department Care Team (Latest Contact Info) Description 02/07/2000 Outpatient Historical [facility] [address] [phone] Shari He MD [address] [place] [phone] Other general counseling and advice for contraceptive management (Primary Dx); Abn Pap Smear-Cervix Social History Tobacco Use Types Packs/Day Years Used Date Smoking Tobacco: Never Assessed Comments Unknown Sex and Gender Information Value Date Recorded Sex Assigned at Not on file 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
--- OUTSIDE RECORDS SUMMARY | 2024-12-28 17:22 | XMS_ITS | Encounter Summary ---
Author Organization [facility] Address [address] [place] [address] Care Team Providers Care Agriculture Consultant Name Role Phone Unavailable Primary Care Provider Unavailabl e Encounter Details Date Type Department Care Team (Latest Contact Info) Description 05/13/2000 Outpatient Historical [facility] Medicine [address] [phone] Shari He MD [address] [place] [phone] Surveillance of other previously prescribed contraceptive method (Primary Dx) Social History Tobacco Use Types Packs/Day Years Used Date Smoking Tobacco: Never Assessed Comments Unknown Sex and Gender Information Value Date Recorded Sex Assigned at Not on file 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
--- OUTSIDE RECORDS SUMMARY | 2024-12-28 17:22 | XMS_ITS | Clinical Summary ---
Author Organization [facility] Address [address] [place]: Epic Prelude ADT RACHEL SIMMONS [address] Care Team Providers Care Stakeholder Manager Name Role Phone Unavailable Primary Care Provider Unavailabl e Allergies No known active allergies Medications sucralfate (Carafate) 100 mg/mL suspension 8 Active cloNIDine HCL (CATAPRES) 0.1 mg tablet Take 0.1 mg by mouth 2 times daily . 8 Active rosuvastatin (CRESTOR) 20 mg tablet Take 1 Tablet (20 mg) by mouth daily at bedtime. 30 Tablet 2 8 Active fenofibrate nanocrystallized (TRICOR) 145 mg tablet Take 1 Tablet (145 mg) by mouth daily. 30 Tablet 2 8 Active hydroCHLOROthiazide (MICROZIDE) 12.5 mg capsule Take 1 Capsule by mouth daily. 8 Active clopidogreL (PLAVIX) 75 mg Tablet Take 1 Tablet (75 mg) by mouth daily. 30 Tablet 2 8 Active FLUoxetine (PROzac) 20 mg capsule Take 20 mg by mouth daily. 8 Active raNITIdine (ZANTAC) 150 mg tablet Take 150 mg by mouth daily. 8 Active ALPRAZolam (XANAX) 0.25 mg tablet Take 0.25 mg by mouth 3 times daily as needed for Anxiety. 8 Active aspirin (ROBERT CHEWABLE) 81 mg Tablet, Chewable Take 81 mg by mouth daily. 8 Active nicotine (NICODERM CQ) 21 mg/24 hr patch Apply 1 Patch to skin as directed daily. 1 Patch 0 8 Active multivitamin (DAILY-PARTH) tablet Take 1 Tablet by mouth daily. 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 Immunizations Immunization Administration Dates Next Due Influenza Seasonal Unspecified Formulation IM Family History Medical History Relation Name Comments Heart Disease Father ms Healthy Mother Relation Name Status Comments Brother 1 Alive Brother 2 Alive Brother 3 Alive Father ms Mother Alive Social History Tobacco Use Types Packs/Day Years Used Date Smoking Tobacco: Every Day Cigarettes Smokeless Tobacco: Never Comments:Quit smoking: Curre ntly smokes < 0.5 ppd - 08/25/17 Alcohol Use Standard Drinks/Week Comments Yes 1 (1 standard drink = 0.6 oz pur e alcohol) Comments Unknown Sex and Gender Information Value Date Recorded Sex Assigned at Not on file Legal Sex Female 10:56 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 Gender Identity Not on file Sexual Orientation Not on file Last Filed Vital Signs Vital Sign Reading Time Taken Comments Blood Pressure 150/80 04/07/2018 1:20 PM CDT Pulse 65 04/07/2018 1:20 PM CDT Temperature 37 C (98.6 F) 08/15/2017 11:31 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 Respiratory Rate 10 08/15/2017 6:00 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 Oxygen Saturation - - Inhaled Oxygen Concentration - - Weight 61.1 [...] (1 of 2) 2010 INFLUENZA VACCINE (#1) 2024 03/29/2017 RSV VACCINE (60+ or ) (1 - 1-dose 75+ series) 11/21/2035 Medical Devices Implanted Type Area Multiplex Operator Device Identifier Shelf Expiration Date Model / Serial / Lot Patch Vascu-Guard [id number] - Sna Implanted:Qty : 1 on 08/12/2017 by Dave Anderson MD Biological Right: Carotid [employer] 03/13/2022 [id number] / NA / [id number]
--- OUTSIDE RECORDS SUMMARY | 2024-12-28 17:22 | XMS_ITS | Encounter Summary ---
Author Organization [facility] Address [address] [place] [address] Care Team Providers Care Senior Java Developer Name Role Phone Unavailable Primary Care Provider Unavailabl e Encounter Details Date Type Department Care Team (Latest Contact Info) Description 02/12/2000 Outpatient Historical [facility] Medicine [address] [phone] Shari He MD [address] [place] [address] Surveillance of other previously prescribed contraceptive method (Primary Dx) Social History Tobacco Use Types Packs/Day Years Used Date Smoking Tobacco: Never Assessed Comments Unknown Sex and Gender Information Value Date Recorded Sex Assigned at Not on file Legal Sex Female 2:41 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
--- NOTE | 2024-12-28 17:29 | ECG_ITS ---
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 Measurements Intervals [place] Rate: 61 P: 45 MA: 153 QRS: 11 QRSD: 81 T: 32 QT: 358 QTc: 362 Interpretive Statements SINUS RHYTHM Compared to ECG 03/15/2024 11:30:24 Sinus bradycardia no longer present T-wave abnormality no longer present Possible ischemia no longer present Electronically Signed On 12-30-2024 08:59:39 CDT by Jaay Harman M.D. [email or web address]
[2024-12-28 17:47] LABS: Hematocrit 35.1 % (36-47); Hemoglobin 11.60 g/dL (11.27-16.99); Mean Corpuscular HGB Conc 33.0 g/dL (30-55); Mean Corpuscular Hemoglobin 30.0 pg (27-33); Mean Corpuscular Volume 90.7 fl (85-98); Nucleated Red Blood Cells % 0 %; Platelet Count 201 10^3/cmm (157-399); Red Blood Count 3.87 10^6/uL (3.85-5.65); White Blood Count 8.62 10^3/uL (3.29-11.43)
[2024-12-28 17:50] VITALS: BP 160/73; PULSE 64; RESP 20; O2SAT 95
--- NOTE | 2024-12-28 17:50 | CTR_ITS ---
PROCEDURE INFORMATION: Exam: CT Head Without Contrast Exam date and time: 12/28/2024 5:58 PM Age: 64 years old Clinical indication: Dizziness; Additional info: Hypertension dizziness TECHNIQUE: Imaging protocol: Computed tomography of the head without contrast. Radiation optimization: All CT scans at this facility use at least one of these dose optimization techniques: automated exposure control; mA and/or kV adjustment per patient size (includes targeted exams where dose is matched to clinical indication); or iterative reconstruction. COMPARISON: CT head wo con* [id number] 01/28/2024 1:50 PM RADIATION DOSE METRICS: Total DLP (mGy-cm): 1187.08 FINDINGS: Brain: Similar generalized cortical volume loss. No hemorrhage. Periventricular and subcortical white matter hypodensities likely represent chronic small vessel ischemic changes. Redemonstrated old lacunar infarct along the left alex. No mass effect. Cerebral ventricles: No ventriculomegaly. Paranasal sinuses: Mild mucosal thickening within bilateral maxillary sinuses with a small mucous retention cysts in the left frontal sinus. No air-fluid levels. Mastoid air cells: Visualized mastoid air cells are well aerated. Bones: Unremarkable. No acute fracture. Soft tissues: Stable likely right frontal scalp sebaceous cyst. Vasculature: Vascular calcifications along the carotid siphons and intracranial vertebral arteries. CT/CT head wo con* [id number] IMPRESSION: 1. No acute intracranial findings. 2. Chronic/age-related changes as above.
[2024-12-28 18:20] VITALS: BP 137/71; PULSE 70; O2SAT 96
[2024-12-28 19:11] VITALS: BP 165/80; PULSE 68; O2SAT 95
[2024-12-28 19:36] LABS: Alanine Aminotransferase 25 U/L (0-33); Albumin Level 4.5 g/dL (3.5-5.2); Alkaline Phosphatase 146 U/L (35-105); Anion Gap 20.5 (5-19); Aspartate Amino Transferase 27 U/L (0-32); Blood Urea Nitrogen 17 mg/dL (8-23); Calcium 9.7 mg/dL (8.5-10.5); Carbon Dioxide 18 mmol/L (22-29); Chloride 104 mmol/L (98-107); Creatinine Clr Calc Pharmacy 71.4014; Globulin 3.2 g/dL (1.3-4.6); Glucose 82 mg/dL (65-115); Osmolality Calculated 287 mOsm/kg (285-295); Potassium 4.5 mmol/L (3.5-5.1); Sodium 138 mmol/L (136-145); Total Protein 7.7 g/dL (6.6-8.7)
[2024-12-28 20:53] VITALS: BP 149/78; PULSE 74; O2SAT 94
[2024-12-28 21:48] VITALS: BP 149/78; PULSE 74; O2SAT 94
== END 2024-12-28 21:53 | disposition home or self-care (01) ==
PROVIDERS: Family Medicine; Emergency Provider Student in an Organized Health Care Education/Training Program; PCP Nurse Practitioner
DX: H81.10 Benign paroxysmal vertigo, unspecified ear (principal); Z79.02 Long term (current) use of antithrombotics/antiplatelets; Z79.82 Long term (current) use of aspirin; Z87.891 Personal history of nicotine dependence; E78.5 Hyperlipidemia, unspecified; I10 Essential (primary) hypertension
CPT/HCPCS: 36415; 70450; 71045; 80053; 85025; 93005; 99285; J8597